=== PATIENT | female | born 1970 | race Caucasian/White ===

== ENCOUNTER → 2017-11-08 | Outpatient (CLI) | payer MEDICAID ==
--- NOTE | 2017-11-08 16:30 | WOMENS IMAGING REPORT ---
EXAM DESCRIPTION: BILAT SCREENING MAMMO W/CAD COMPLETED DATE/TIME: 11/08/2017 11:10 am REASON FOR STUDY: ROUTINE SCREENING;Z12.31 Z12.31 ENCNTR SCREEN MAMMOGRAM FOR MALIGNANT NEOPLASM OF LEYLA COMPARISON: 2014 TECHNIQUE: Standard craniocaudal and mediolateral oblique views of each breast recorded using digita l acquisition. LIMITATIONS: None. FINDINGS: No masses, calcifications or architectural distortion. No areas of suspicion. Read with the assistance of CAD. .[facility] - R2 Cenova Version 1.3 .[facility] Imaging - R2 Cenova Version 1.3 .[facility] Imaging - R2 Cenova Version 2.4 .[facility] [place] - R2 Cenova Version 2.4 .[facility] - R2 [employer] Nutrition Supervisor Version 9.2 IMPRESSION: NORMAL MAMMOGRAM. BIRADS 1. BREAST DENSITY: b. There are scattered areas of fibroglandular density. BIRAD: 1 NEGATIVE RECOMMENDATION: ROUTINE SCREENING COMMENT: The patient has been notified of the results by letter per SA requirements. Additional no tification policies are in place for contacting patient with suspicious or incomplete findings. Quality ID #[id number]: The [employer] recommends an annual screening mammogram for women aged 40 years or over. This facility utilizes a reminder system to ensure that all patients receive reminder letters, and/or direct phone calls for appointments. This includes reminders for routine scr eening mammograms, diagnostic mammograms, or other Breast Imaging Interventions when appropriate. Th is patient will be placed in the appropriate reminder system. The [employer] (A[employer]) has developed recommendations for screening MRI of the breast s in certain patient populations, to be used in conjunction with mammography. Breast MRI surveillanc e may be appropriate for women with more than 20% lifetime risk of developing breast cancer as deter mined by genetic testing, significant family history of the disease, or history of mantle radiation f or Hodgkins Disease. ACR Practice Guidelines 2008. TECHNICAL DOCUMENTATION: FINDING NUMBER: (1) ASSESSMENT: (1) JOB ID: [id number] [employer]- All Rights Reserved Reading location - IP/workstation name: [email or web address]
== END ==
LOC: WI 10:38
PROVIDERS: ATTEND Physician Assistant
DX: Z12.31 Encounter for screening mammogram for malignant neoplasm of breast (principal)
CPT/HCPCS: 77067

== ENCOUNTER 2018-06-27 10:08 | Emergency (ER) | payer MEDICAID ==
[2018-06-27 10:13] VITALS: BP 144/90
--- NOTE | 2018-06-27 10:33 | ER Document Report ---
ED Extremity Problem, Lower - General Chief Complaint: Knee Pain Stated Complaint: KNEE PAIN Time Seen by Provider: 06/27/18 10:18 Mode of Arrival: Ambulatory Information source: Patient Notes: 48-year-old female presents to ED for complaint of left knee pain times 10 days. She states that she fell in [employer] about 10 days ago in the medial aspect of her knee has been giving her problems since then. She states is in extreme pain. She does have a history of bilateral knee arthritis. Patient states she also had some pain in her back but that better she is just concerned about the left knee. Patient is alert and oriented respirations regular and unlabored speaking in full sentences. Patient is able to ambulate. She states it does hurt to ambulate. Patient states she plans to go to follow-up with her primary doctor Dr. James tomorrow. TRAVEL OUTSIDE OF THE [place] IN LAST 30 DAYS: No - HPI Patient complains to provider of: Injury, Pain Location: Knee - Left medial aspect Occurred: Other - 10 days Where: Other - [facility] Onset/Duration: Persistent Quality of pain: Achy, Sharp, Throbbing Severity: Severe Pain Level: 5 Context: Fell Recent injury: Possibly Associated symptoms: Painful ambulation Exacerbated by: Hanging down, Movement, Walking Relieved by: Nothing - Related Data Allergies/Adverse Reactions: Penicillins Allergy (Intermediate, Verified 02/07/14 19:20) Hives Past Medical History - General Information source: Patient - Social History Smoking Status: Current Every Day Smoker Cigarette use (# per day): Yes Smoking Education Provided: Yes - 4 minutes Frequency of alcohol use: None Drug Abuse: None Family History: None, Reviewed & Not Pertinent Patient has suicidal ideation: No Patient has homicidal ideation: No - Past Medical History Cardiac Medical History: Reports: None Pulmonary Medical History: Reports: None EENT Medical History: Reports: None Neurological Medical History: Reports: Hx Migraine, Other - Benign brain tumor removed Endocrine Medical History: Reports: None Renal/ Medical History: Reports: None Malignancy Medical History: Reports: None GI Medical History: Reports: None Musculoskeletal Medical History: Reports Hx Arthritis - RA bilat knees Skin Medical History: Reports None Psychiatric Medical History: Reports: Hx Depression Traumatic Medical History: Reports: None Infectious Medical History: Reports: None Past Surgical History: Reports: Hx Cholecystectomy, Hx Neurologic Surgery - tumor removed, Hx Tubal Ligation - Immunizations Hx Pneumococcal Vaccination: 04/17/11 Review of Systems - Review of Systems Constitutional: No symptoms reported EENT: No symptoms reported Cardiovascular: No symptoms reported Respiratory: No symptoms reported Gastrointestinal: No symptoms reported Genitourinary: No symptoms reported Female Genitourinary: No symptoms reported Musculoskeletal: Joint pain. denies: Joint swelling - Left knee Skin: No symptoms reported Hematologic/Lymphatic: No symptoms reported Neurological/Psychological: No symptoms reported -: Yes All other systems reviewed and negative Physical Exam - Vital signs Vitals: Temp Pulse Resp BP Pulse Ox 98.6 F 86 20 144/90 H 98 06/27/18 10:11 06/27/18 10:11 06/27/18 10:11 06/27/18 10:11 06/27/18 10:11 Interpretation: Normal - General General appearance: Appears well, Alert - HEENT Head: Normocephalic, Atraumatic Eyes: Normal Pupils: PERRL - Respiratory Respiratory status: No respiratory distress Chest status: Nontender Breath sounds: Normal Chest palpation: Normal - Cardiovascular Rhythm: Regular Heart sounds: Normal auscultation Murmur: No - Abdominal Inspection: Normal Distension: No distension Bowel sounds: Normal Tenderness: Nontender Organomegaly: No organomegaly - Back Back: Normal, Nontender - Extremities General upper extremity: Normal inspection, Nontender, Normal color, Normal ROM, Normal temperature General lower extremity: Normal inspection, Normal color, Normal temperature, Normal weight bearing. No: Janet's sign Knee: Tender, Pain with ROM, Patellar tendon intact, Tender joint line. No: Abrasion, Deformity, Dislocation, Drawer's test instability, Ecchymosis, Instability, Joint effusion, Laceration, Laxity with valgus stress, Laxity with varus stress, Popliteal fossa tender, Unable to bear weight - Medial - Neurological Neuro grossly intact: Yes Cognition: Normal Orientation: AAOx4 [place] Coma Scale Eye Opening: Spontaneous [place] Coma Scale Verbal: Oriented Paulo Coma Scale Motor: Obeys Commands Paulo Coma Scale Total: 15 Speech: Normal Motor strength normal: LUE, RUE, LLE, RLE Sensory: Normal - Psychological Associated symptoms: Normal affect, Normal mood - Skin Skin Temperature: Warm Skin Moisture: Dry Skin Color: Normal Course - Re-evaluation Re-evalutation: 06/27/18 11:13 I discussed with patient and written report of x-rays given to patient to follow-up with primary doctor and with orthopedics. Patient stated she would follow-up with her primary doctor who will have to make a referral to orthopedics. Patient opted on elevation ice ibuprofen and knee immobilizer. Patient was instructed on use of crutches. Patient was able to demonstrate use of crutches. Patient was discharged home. - Vital Signs Vital signs: Temp Pulse Resp BP Pulse Ox 98.6 F 86 20 144/90 H 98 06/27/18 10:11 06/27/18 10:11 06/27/18 10:11 06/27/18 10:11 06/27/18 10:11 - Diagnostic Test Radiology reviewed: Image reviewed, Reports reviewed Procedures - Immobilization Left Knee Time completed: 10:35 Pre-Proc Neuro Vasc Exam: Normal Immobilizer type: Crutches, Knee immobilizer Performed by: PCT Post-Proc Neuro Vasc Exam: Normal Alignment checked and good: Yes Discharge - Discharge Clinical Impression: Left knee pain Qualifiers: Chronicity: acute Qualified Code(s): M25.562 - Pain in left knee Fall Qualifiers: Encounter type: initial encounter Qualified Code(s): W19.XXXA - Unspecified fall, initial encounter Condition: Stable Disposition: HOME, SELF-CARE Additional Instructions: SUSPECTED INTERNAL KNEE INJURY: The examiner of your injured knee suspects an internal injury to the cartilage or internal ligaments. This must be further investigated by an orthopedic cast specialist. The knee should be protected, ice packed, and elevated while awaiting your follow-up exam by the orthopedist. If there is severe swelling, severe pain, or any new symptoms while awaiting your exam, you should call the orthopedist. (If he/she is unavailable, call us or return for re-examination.) KNEE IMMOBILIZING SPLINT: The knee immobilizing splint will protect the injury while healing begins. This type of splint does not allow the knee to bend at all. No running or sports will be possible. If the splint allows painfree walking, it's giving adequate protection. If there is still significant pain, crutches may be needed as well. Don't do anything that hurts. Adjusted the splint, if necessary. The stiffeners on the sides are attached with Velcro, so they can be easily moved to adjust for thigh and calf size. If you need help with these adjustments, come back. You will lose muscle strength in the thigh while using this splint. The doctor will advise you if it's safe to do isometric knee exercises while you use it. USE OF CRUTCHES: The doctor has recommended that you not bear weight at this time. You will need to use crutches. Adjust the crutches so the tops come to about two inches under the armpit while you are standing upright. Use your hands -- not your armpits -- to support your weight. To get into a chair, support yourself with one crutch on the injured side. Hold the chair with the other hand, then lower yourself while putting all your weight on the good leg. Going up stairs is `good leg up, step up, then bring up crutches and bad leg.' Down stairs is `bad leg and crutches down, then bring good leg down.' If you develop numbness or swelling in an arm or hand, you are using the crutches incorrectly. Return if you are having any problems with the crutches. ICE & ELEVATION: Apply ice packs frequently against the painful area. Many different schedules are recommended, such as "20 minutes on, 20 minutes off" or "one hour ice, two hours rest." If you need to work, you may need to go longer between ice treatments. You should plan to have the area ice packed AT LEAST one-fourth of the time. The ice should be applied over the wrap, tape, or splint, or over a layer of cloth -- not directly against the skin. Some ice bags have a built-in cloth and can be put directly on the skin. Your injured part should be elevated as much as possible over the next 48 hours. Try to keep the injury above the level of the heart. Avoid use of the injured area. Elevation and rest will decrease the swelling. USE OF [id number] IBUPROFEN: Ibuprofen (Advil, Nuprin, Medipren, Motrin IB) is a medication for fever and pain control. In addition, it has anti- inflammatory effects which may be beneficial, especially in the treatment of injuries. It's best to take ibuprofen with food. Persons with ulcer disease or allergy to aspirin should notify their physician of this before taking ibuprofen. Ibuprofen can be given every four to six hours, for a total of four doses daily. Age Pain or fever dose Antiinflammatory dose 6-8 yr 200 mg (1 tab) 200 mg (1 tab) 9-11 yr 200 mg (1 tab) 200-400 mg (1-2 tab) 11-14 yr 200-400 mg (1-2 tab) 400 mg (2 tab) 15-adult 400 mg (2 tab) 600 mg (3 tab) High Blood Pressure When your blood pressure was taken today it was elevated. Today's reading was 144/90 . Pre-hypertension/Hypertension: The patient has been informed that they may have pre-hypertension or Hypertension based on a blood pressure reading in the emergency department. I recommend that the patient call the primary care provider listed on their discharge instructions or a physician of their choice this wee to arrange follow up for further evaluation of possible pre- hypertension or Hypertension. Sometimes, stress or illness causes a temporary elevation of your blood pressure. We suggest that you get your blood pressure measured three more times during the next few days to see if this is more than a temporary abnormality. If your blood pressure is greater than 150/90 on each occasion, you must have treatment. Some simple things you can do to help are: If you have blood pressure medicine but aren't using it regularly, start taking it again. Get some aerobic exercise for at least 20 minutes on a daily basis. (See your doctor before beginning a new exercise program.) Eat a low-fat diet. Lose excess weight. Avoid salty foods and avoid adding salt to any of the foods you eat. Avoid diet pills, decongestants, "energizing" herbs, and other medicines that elevate blood pressure. If left untreated, hypertension greatly enhances your risk for developing heart disease and strokes. Please don't ignore this problem. FOLLOW-UP CARE: If you have been referred to a physician for follow-up care, call the physicians office for an appointment as you were instructed or within the next two days. If you experience worsening or a significant change in your symptoms, notify the physician immediately or return to the Emergency Department at any time for re-evaluation. Forms: Elevated Blood Pressure, Smoking Cessation Education, Return to Work Referrals: FADY MANZANARES PA [Primary Care Provider] - Follow up as needed CHRIST BATES MD [ACTIVE STAFF] - Follow up as needed
--- NOTE | 2018-06-27 10:58 | RADIOLOGY REPORT (SQ) ---
EXAM DESCRIPTION: KNEE LEFT 4 VIEW COMPLETED DATE/TIME: 06/27/2018 10:46 am REASON FOR STUDY: fell pain x 10 days COMPARISON: 02/22/2015. NUMBER OF VIEWS: Four views. TECHNIQUE: AP, lateral, and both oblique radiographic images acquired of the left knee. LIMITATIONS: None. FINDINGS: MINERALIZATION: Normal. BONES: No acute fracture or dislocation. No worrisome bone lesions. JOINT: No effusion. SOFT TISSUES: No soft tissue swelling. No radio-opaque foreign body. OTHER: No other significant finding. IMPRESSION: NEGATIVE STUDY OF THE LEFT KNEE. NO RADIOGRAPHIC EVIDENCE OF ACUTE INJURY. TECHNICAL DOCUMENTATION: JOB ID: [id number] [employer]- All Rights Reserved Reading location - IP/workstation name: [email or web address]
== END 2018-06-27 11:16 | disposition home or self-care (01) ==
LOC: ER 10:08
DX: M25.562 Pain in left knee (principal); F17.210 Nicotine dependence, cigarettes, uncomplicated; W19.XXXA Unspecified fall, initial encounter; Y92.512 Supermarket, store or market as the place of occurrence of the external cause; Z88.0 Allergy status to penicillin; Z90.49 Acquired absence of other specified parts of digestive tract
CPT/HCPCS: 99406; 99283; 73564; L1830

== ENCOUNTER 2018-07-10 14:32 | Emergency (ER) | payer MEDICAID ==
--- NOTE | 2018-07-10 16:06 | ER Document Report ---
ED Respiratory Problem - General Mode of Arrival: Ambulatory Information source: Patient TRAVEL OUTSIDE OF THE [place] IN LAST 30 DAYS: No - HPI Patient complains to provider of: Cough, Other Onset: Other Duration: Continuous - 2 weeks Initiating Event: URI Quality of pain: Achy, Other Severity: Severe - Sore throat Context: Smoker Cough: Productive Sputum amount: Moderate Sputum color: Yellow Sputum consistency: Thick Associated symptoms: Congestion, Cough, PND, Runny nose, Short of breath, Sore Throat. denies: Fever Similar symptoms previously: Yes Recently seen / treated by doctor: Yes - General Chief Complaint: Cough Stated Complaint: COUGH,CONGESTION,SORE THROAT Time Seen by Provider: 07/10/18 15:50 Notes: 48-year-old female presents to ED for cough cold congestion sore throat for 2 weeks. She states it is been going on since she was seen last time for her knee pain. She states she has been trying to get into the doctor for that but she has not been able to get in follow-up appointment. She states she is also not been in to be seen about her high blood pressure. Patient is alert oriented respirations regular and unlabored speaking in full sentences walk with a even steady gait. Her blood pressure is 160/105 in the [place] area. The nurse will recheck it manually. (WINNIE LAUGHLIN) - Related Data Allergies/Adverse Reactions: Penicillins Allergy (Intermediate, Verified 07/10/18 14:36) Hives Past Medical History - General Information source: Patient - Social History Smoking Status: Current Every Day Smoker Cigarette use (# per day): Yes - 5 cigarettes a day Chew tobacco use (# tins/day): No Smoking Education Provided: Yes - 4 minutes Frequency of alcohol use: None Drug Abuse: None Family History: None, Reviewed & Not Pertinent Patient has suicidal ideation: No Patient has homicidal ideation: No - Past Medical History Cardiac Medical History: Reports: Hx Hypertension Pulmonary Medical History: Reports: None EENT Medical History: Reports: None Neurological Medical History: Reports: Hx Migraine Endocrine Medical History: Reports: None Renal/ Medical History: Reports: None Malignancy Medical History: Reports: None GI Medical History: Reports: None Musculoskeletal Medical History: Reports Hx Arthritis - RA bilat knees Skin Medical History: Reports None Psychiatric Medical History: Reports: Hx Depression Traumatic Medical History: Reports: None Infectious Medical History: Reports: None Past Surgical History: Reports: Hx Cholecystectomy, Hx Neurologic Surgery - tumor removed, Hx Tubal Ligation - Immunizations Immunizations up to date: Yes History of Influenza Vaccine for 04/2017 - 09/2017 Season: No Hx Pneumococcal Vaccination: 04/17/11 Review of Systems - Review of Systems Constitutional: Chills, Recent illness EENT: Nose congestion, Nose discharge, Sinus pressure, Sinus discharge, Throat pain Cardiovascular: No symptoms reported Respiratory: Cough, Short of breath, Sputum Gastrointestinal: No symptoms reported Genitourinary: No symptoms reported Female Genitourinary: No symptoms reported Musculoskeletal: No symptoms reported Skin: No symptoms reported Hematologic/Lymphatic: No symptoms reported Neurological/Psychological: No symptoms reported -: Yes All other systems reviewed and negative Physical Exam - Vital signs Interpretation: Normal - General General appearance: Appears well, Alert - HEENT Head: Normocephalic, Atraumatic Eyes: Normal Pupils: PERRL Ears: Normal External canal: Normal Tympanic membrane: Normal Sinus: Normal Nasal: Purulent discharge, Swelling Mouth/Lips: Normal Mucous membranes: Normal Pharynx: Post nasal drainage Neck: Normal - Respiratory Respiratory status: No respiratory distress Chest status: Nontender Breath sounds: Normal, Nonproductive cough Chest palpation: Normal - Cardiovascular Rhythm: Regular Heart sounds: Normal auscultation Murmur: No - Abdominal Inspection: Normal Distension: No distension Bowel sounds: Normal Tenderness: Nontender Organomegaly: No organomegaly - Back Back: Normal, Nontender - Extremities General upper extremity: Normal inspection, Nontender, Normal color, Normal ROM, Normal temperature General lower extremity: Normal inspection, Nontender, Normal color, Normal ROM, Normal temperature, Normal weight bearing. No: Janet's sign - Neurological Neuro grossly intact: Yes Cognition: Normal Orientation: AAOx4 [place] Coma Scale Eye Opening: Spontaneous [place] Coma Scale Verbal: Oriented Paulo Coma Scale Motor: Obeys Commands Paulo Coma Scale Total: 15 Speech: Normal Motor strength normal: LUE, RUE, LLE, RLE Sensory: Normal - Psychological Associated symptoms: Normal affect, Normal mood - Skin Skin Temperature: Warm Skin Moisture: Dry Skin Color: Normal - Vital signs Vitals: Temp Pulse Resp BP Pulse Ox 99.7 F 68 16 160/105 H 98 07/10/18 15:09 07/10/18 15:09 07/10/18 15:09 07/10/18 15:09 07/10/18 15:09 Course - Diagnostic Test Radiology reviewed: Image reviewed, Reports reviewed - Re-evaluation Re-evalutation: 07/10/18 21:35 X-ray results and strep results were discussed with patient and written reports given to patient. After performing a Medical Screening Examination, I estimate there is LOW risk for ACUTE CORONARY SYNDROME, RESPIRATORY FAILURE, SEPSIS OR MENINGITIS, thus I consider the discharge disposition reasonable. I have reevaluated this patient multiple times and no significant life threatening changes are noted. The patient and I have discussed the diagnosis and risks, and we agree with discharging home with close follow-up. We also discussed returning to the Emergency Department immediately if new or worsening symptoms occur. We have discussed the symptoms which are most concerning (e.g., changing or worsening pain, trouble swallowing or breathing, neck stiffness, fever) that necessitate immediate return. (WINNIE LAUGHLIN) 07/11/18 20:29 I was personally available for consultation during this patient's worse. I did not personally evaluate the patient. (ANDRE RUSSELL) - Vital Signs Vital signs: Temp Pulse Resp BP Pulse Ox 99.7 F 71 18 156/93 H 100 07/10/18 15:09 07/10/18 16:58 07/10/18 16:58 07/10/18 16:58 07/10/18 16:58 Discharge - Discharge Clinical Impression: Sore throat (viral) URI (upper respiratory infection) Qualifiers: URI type: unspecified URI Qualified Code(s): J06.9 - Acute upper respiratory infection, unspecified Condition: Stable Disposition: HOME, SELF-CARE Additional Instructions: SORE THROAT: Sore throats may be caused by viruses, bacteria, or fungi. Most are due to a virus, and must get better on their own. Bacterial sore throats, particularly those due to "strep," need treatment with antibiotics. If an antibiotic is prescribed, be sure to take the medication for a full 10 days. Failure to take the antibiotic can result in complications such as rheumatic fever. Sometimes, an injection of antibiotics is given instead of pills or liquid. This single "shot" is equal in effectiveness to the oral medication. To relieve symptoms, take acetaminophen for pain. Sip clear liquids frequently, or eat popsicles or ice chips. Anesthetic sprays or lozenges may help. Make sure the air in the room is not too dry. Avoid using decongestants or antihistamines. Call the doctor if there is no improvement in two days, or if you have difficulty breathing, increasing throat pain, high fever, rash, or frequent vomiting. UPPER RESPIRATORY ILLNESS: You have a viral infection of the respiratory passages -- a "cold." This common infection causes nasal congestion, drainage, and often sore throat and cough. It is highly contagious. The disease usually lasts about 10 to 14 days. There is no "cure" for the viral infection -- it must run its course. If there is a complication, such as bacterial infection in the nose, sinuses, middle ear, or bronchial tubes, antibiotics may be required. The antibiotics w on't affect the virus. Drink plenty of fluids. A humidifier may help. An expectorant medication or decongestant may make you more comfortable. Use acetaminophen or ibuprofen for fever or aches. See the doctor if fever persists over two days, if there is any significant worsening of your symptoms, or if you simply fail to improve as expected. USE OF ACETAMINOPHEN (Tylenol): Acetaminophen may be taken for pain relief or fever control. It's much safer than aspirin, offering a wider range of "safe" dosages. It is safe during . Some brand names are Tylenol, Panadol, Datril, Anacin 3, Tempra, and Liquiprin. Acetaminophen can be repeated every four hours. The following are maximum recommended dosages: >89 pounds or adults 650 mg to 900 mg Acetaminophen can be repeated every four hours. Maximum dose not to exceed 4000 mg a day. SMOKING: If you smoke, you should stop smoking. The tar and chemicals in cigarette smoke are harmful. Smoking has been shown to cause: emphysema chronic bronchitis lung cancer mouth and throat cancer stomach and pancreas cancer premature aging defects In addition, smoking increases ear and lung infections in children of smokers. Use salt and soda solution gargles to help remove the postnasal drip to help you with your cough. You do not have strep throat your chest x-ray is negative for any infection. Please follow-up with your primary doctor. Please stop smoking. FOLLOW-UP CARE: If you have been referred to a physician for follow-up care, call the physicians office for an appointment as you were instructed or within the next two days. If you experience worsening or a significant change in your symptoms, notify the physician immediately or return to the Emergency Department at any time for re-evaluation. Forms: Elevated Blood Pressure, Smoking Cessation Education Referrals: FADY MANZANARES PA [PHYSICIAN POWER NUT RUNNER OPERATOR] - Follow up as needed
--- NOTE | 2018-07-10 16:41 | RADIOLOGY REPORT (SQ) ---
EXAM DESCRIPTION: CHEST 2 VIEWS COMPLETED DATE/TIME: 07/10/2018 4:28 pm REASON FOR STUDY: Cough congestion sore throat COMPARISON: 2012 TECHNIQUE: Frontal and lateral radiographic views of the chest acquired. NUMBER OF VIEWS: Two view. LIMITATIONS: None. FINDINGS: LUNGS AND PLEURA: No opacities, masses or pneumothorax. No pleural effusion. MEDIASTINUM AND HILAR STRUCTURES: No masses or contour abnormalities. HEART AND VASCULAR STRUCTURES: Heart normal size. No evidence for failure. BONES: No acute findings. HARDWARE: None in the chest. OTHER: No other significant finding. IMPRESSION: NO SIGNIFICANT RADIOGRAPHIC FINDING IN THE CHEST. TECHNICAL DOCUMENTATION: JOB ID: [id number] [employer]- All Rights Reserved Reading location - IP/workstation name: [email or web address]
[2018-07-10 16:58] VITALS: BP 156/93
== END 2018-07-10 17:01 | disposition home or self-care (01) ==
LOC: ER 14:32
DX: J06.9 Acute upper respiratory infection, unspecified (principal); J02.9 Acute pharyngitis, unspecified; R05 Cough; R09.81 Nasal congestion; R09.82 Postnasal drip; R09.89 Other specified symptoms and signs involving the circulatory and respiratory systems; R06.02 Shortness of breath; F17.210 Nicotine dependence, cigarettes, uncomplicated; I10 Essential (primary) hypertension
CPT/HCPCS: 71046; 87070; 87880; 99283; 99406

== ENCOUNTER 2018-09-25 19:32 | Emergency (ER) | payer MEDICAID ==
[2018-09-25] MEDS ORDERED: KETOROLAC TROMETHAMINE INJ/PF 30 MG/1 ML SDV IV ONE (20:12)
[2018-09-25] MEDS ORDERED: PROCHLORPERAZINE EDISYLATE INJ 10 MG/2 ML VIAL IV ONE (20:12)
[2018-09-25] MEDS ORDERED: DIPHENHYDRAMINE HCL 50 MG/ML VIAL IV ONE (20:12)
--- NOTE | 2018-09-25 20:13 | ER Document Report ---
ED Medical Screen (RME) - General Chief Complaint: Headache Stated Complaint: HEAD PAIN Time Seen by Provider: 09/25/18 20:08 Primary Care Provider: ASHLEY PARKS MD [Primary Care Provider] - Follow up as needed Notes: 48-year-old female patient with 3-day history of headache all over. She took Motrin once yesterday. She states Motrin usually takes care of her headaches like this. Brief exam shows scalp tenderness all over, and extreme tenderness to the posterior cervical muscles and the nuchal ridge. This appears to be a muscle contraction type headache. TRAVEL OUTSIDE OF THE [place] IN LAST 30 DAYS: No - Related Data Allergies/Adverse Reactions: Penicillins Allergy (Intermediate, Verified 07/10/18 14:36) Hives Past Medical History - Social History Family history: Reviewed & Not Pertinent - Past Medical History Cardiac Medical History: Reports: Hx Hypertension Neurological Medical History: Reports: Hx Migraine Renal/ Medical History: Denies: Hx Peritoneal Dialysis Musculoskeltal Medical History: Reports Hx Arthritis - RA bilat knees Psychiatric Medical History: Reports: Hx Depression Past Surgical History: Reports: Hx Cholecystectomy, Hx Neurologic Surgery - tumor removed, Hx Tubal Ligation. Denies: Hx Hysterectomy - Immunizations Immunizations up to date: Yes History of Influenza Vaccine for 04/2017 - 09/2017 Season: No Physical Exam - Vital signs Vitals: Temp Pulse Resp BP Pulse Ox 98.2 F 86 24 H 145/89 H 99 09/25/18 19:41 09/25/18 19:41 09/25/18 19:41 09/25/18 19:41 09/25/18 19:41 Course - Vital Signs Vital signs: Temp Pulse Resp BP Pulse Ox 98.2 F 86 24 H 145/89 H 99 09/25/18 19:41 09/25/18 19:41 09/25/18 19:41 09/25/18 19:41 09/25/18 19:41 Doctor's Discharge - Discharge Referrals: ASHLEY PARKS MD [Primary Care Provider] - Follow up as needed
[2018-09-25] MEDS ORDERED: TETRACAINE HCL 0.5% OPH SOLN 4 ML OU ONE (20:47)
--- NOTE | 2018-09-25 22:04 | RADIOLOGY REPORT (SQ) ---
EXAM DESCRIPTION: CT HEAD WITHOUT IV CONTRAST COMPLETED DATE/TME: 09/25/2018 20:47 CLINICAL HISTORY: 48 years, Female, headache, h/o craniotomy COMPARISON: 09/29/2012 CT brain TECHNIQUE: 196 Images stored on PACS. All CT scanners at this facility use dose modulation, iterative reconstruction, and/or weight based dosing when appropriate to reduce radiation dose to as low as reasonably achievable (ALARA). [facility]: Dose Right [facility]: CareDose [facility]: Dose Right [facility]: Teradose 4D [facility]: [employer] LIMITATIONS: None. FINDINGS: The globes are intact. The paranasal sinuses and mastoid air cells are unremarkable. 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 Stable areas of relative hyperdensity in the underlying dura and subdural regions. No CT evidence for acute intracranial hemorrhage. CT is limited for evaluation of acute infarct. No CT evidence for large or territorial acute infarct. No mass or midline shift. IMPRESSION: Stable postsurgical changes as above. Negative for acute intracranial abnormality TECHNICAL DOCUMENTATION: Quality ID # [id number]: Final reports with documentation of one or more dose reduction techniques (e.g., Automated exposure control, adjustment of the mA and/or kV according to patient size, use of iterative reconstruction technique) copyright 2011 [employer]- All Rights Reserved
--- NOTE | 2018-09-25 23:33 | RADIOLOGY REPORT (SQ) ---
EXAM DESCRIPTION: XR CHEST 2 VIEWS COMPLETED DATE/TME: 09/25/2018 22:51 CLINICAL HISTORY: 48 years, Female, cough COMPARISON: 07/10/2018 chest NUMBER OF VIEWS: 2 TECHNIQUE: 2 view chest LIMITATIONS: None. FINDINGS: Heart size normal. Lungs clear. No pneumothorax IMPRESSION: Negative chest copyright 2010 [employer]- All Rights Reserved
[2018-09-26] MEDS ORDERED: ALBUTEROL SULFATE HFA (90 MCG/PUFF) 8 GM MDI (1 MDI/ER DISP) IH PRN (00:42)
--- NOTE | 2018-09-26 00:46 | ER Document Report ---
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 Patient does smoke 1 pack/cigarettes a day. She does report a recent cough. And she reports a headache with the cough. TRAVEL OUTSIDE OF THE [place] IN LAST 30 DAYS: No - HPI Onset: Last week Onset/Duration: Gradual Quality of pain: Dull Severity: Moderate Pain Level: 3 Associated symptoms: denies: Chest pain, Fever, Shortness of breath Exacerbated by: Denies Relieved by: Denies Similar symptoms previously: Yes Recently seen / treated by doctor: No - Related Data Allergies/Adverse Reactions: Penicillins Allergy (Intermediate, Verified 07/10/18 14:36) Hives Past Medical History - General Information source: Patient - Social History Smoking Status: Current Every Day Smoker Cigarette use (# per day): Yes - 1 pack/day Chew tobacco use (# tins/day): No Frequency of alcohol use: None Drug Abuse: None Lives with: Family Family History: None, Reviewed & Not Pertinent Patient has suicidal ideation: No Patient has homicidal ideation: No - Past Medical History Cardiac Medical History: Reports: Hx Hypertension Pulmonary Medical History: Reports: None Neurological Medical History: Reports: Hx Migraine Endocrine Medical History: Reports: None Renal/ Medical History: Denies: Hx Peritoneal Dialysis Malignancy Medical History: Reports: Other - 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 Denies: Hx Hysterectomy - Immunizations Immunizations up to date: Yes Hx Pneumococcal Vaccination: 04/17/11 Review of Systems - Review of Systems Constitutional: denies: Chills, Fever EENT: No symptoms reported Cardiovascular: No symptoms reported Respiratory: See HPI Gastrointestinal: No symptoms reported Genitourinary: No symptoms reported Female Genitourinary: No symptoms reported Musculoskeletal: No symptoms reported Skin: No symptoms reported Hematologic/Lymphatic: No symptoms reported Neurological/Psychological: See HPI Physical Exam - Vital signs Vitals: Temp Pulse Resp BP Pulse Ox 98.2 F 86 24 H 145/89 H 99 09/25/18 19:41 09/25/18 19:41 09/25/18 19:41 09/25/18 19:41 09/25/18 19:41 Notes: Physical exam: GENERAL: She is alert and oriented x3, no acute distress. HEAD: Atraumatic, normocephalic. EYES: Patient's right pupil is round and reactive to light. Patient does have an irregular shaped left pupil. She does have a history of 2 surgeries on the right eye with lens replacement. Her conjunctiva is mildly injected left. Jordon-Pen: Pressure on the right is 11, pressure on the left is 14 (both tested multiple times with 95% confidence intervals). ENT: TMs normal, nares patent, oropharynx clear without exudates. Moist mucous membranes. NECK: Normal range of motion, supple without obvious mass or JVD. LUNGS: Breath sounds clear to auscultation bilaterally and equal. No wheezes rales or rhonchi. HEART: Regular rate and rhythm without murmurs, rubs or gallops. ABDOMEN: Soft, normoactive bowel sounds. No tenderness to palpation. No guarding, no rebound. No masses appreciated. EXTREMITIES: Normal range of motion, no pitting or edema. No clubbing or cyanosis. NEUROLOGICAL: Cranial nerves II through XII grossly intact. Patient's neck is supple. Normal speech, moving all extremities. There is 5/5, sensory is grossly intact. PSYCH: Normal mood, normal affect. SKIN: Warm, Dry, normal turgor, no rashes or lesions noted. Course - Re-evaluation Re-evalutation: 09/26/18 02:52 Patient was treated with IV pain medicines with good response. We did do a CT of the head given her history of a left skull mass. CT was clear. He had chest pain patient's chest x-ray was clear. - Vital Signs Vital signs: Temp Pulse Resp BP Pulse Ox 97.9 F 78 18 136/91 H 100 09/26/18 00:13 09/26/18 00:13 09/26/18 00:13 09/26/18 00:13 09/26/18 00:13 - Diagnostic Test Radiology reviewed: Image reviewed, Reports reviewed - CT of the head shows no bleed Discharge - Discharge Clinical Impression: Migraine headache, URI Condition: Stable Disposition: HOME, SELF-CARE Additional Instructions: As we discussed, the head CT look good. The pressure in both eyes was good. I do want you to follow-up with the solar sales advisor. Your chest x-ray was clear: You do have an upper respiratory infection. Take the inhaler: 2 puffs every 6 hours for wheezing or cough. Take the Fioricet for headache. Return to the emergency room for worsening pain or any concerns or getting worse. Follow-up with your primary care doctor in 2-3 days. Prescriptions: Butalb/Acetaminophen/Caffeine [Fioricet (50-325-40 mg) Tablet] 1 tab PO Q4HP PRN #30 tab PRN Reason: Referrals: ASHLEY PARKS MD [Primary Care Provider] - Follow up in 3-5 days
[2018-09-26 00:51] VITALS: BP 136/91
== END 2018-09-26 00:54 | disposition home or self-care (01) ==
LOC: ER 19:32
DX: G43.909 Migraine, unspecified, not intractable, without status migrainosus (principal); J06.9 Acute upper respiratory infection, unspecified; R05 Cough; F17.210 Nicotine dependence, cigarettes, uncomplicated; I10 Essential (primary) hypertension; Z88.0 Allergy status to penicillin; Z96.1 Presence of intraocular lens
CPT/HCPCS: 99284; 96374; 96375; 71046; 70450; J1200; J1885; J0780; J3490 ×2

== ENCOUNTER 2018-10-22 18:40 | Emergency (ER) | payer MEDICAID ==
[2018-10-22] MEDS ORDERED: HYDROMORPHONE HCL INJ/PF 2 MG/ML AMPULE SUBCUT ONE (20:06)
[2018-10-22] MEDS ORDERED: ONDANSETRON 4 MG TAB.RAPDIS PO ONE (20:07)
[2018-10-22] MEDS ORDERED: LIDOCAINE 1%/EPINEPHRINE INJ 20 ML VIAL INJ ONE (20:08)
--- NOTE | 2018-10-22 20:12 | ER Document Report ---
ED General - General Chief Complaint: Abscess Stated Complaint: GROIN PAIN Time Seen by Provider: 10/22/18 20:06 Primary Care Provider: ASHLYE PARKS MD [Primary Care Provider] - Follow up as needed Mode of Arrival: Ambulatory Information source: Patient TRAVEL OUTSIDE OF THE [place] IN LAST 30 DAYS: No - HPI Patient complains to provider of: Left groin abscess Onset: Last week Onset/Duration: Gradual, Persistent Quality of pain: Sharp, Stabbing Severity: Severe Pain Level: 5 Associated symptoms: denies: Chills, Fever Exacerbated by: Movement, Other - TOUCH Relieved by: Denies Similar symptoms previously: No Recently seen / treated by doctor: No Notes: 48-year-old morbidly obese female with left groin abscess since last week. No fevers or chills. History of abscesses in the past. - Related Data Allergies/Adverse Reactions: Penicillins Allergy (Intermediate, Verified 10/22/18 18:48) Hives Past Medical History - General Information source: Patient - Social History Smoking Status: Current Every Day Smoker Family History: None, Reviewed & Not Pertinent - Past Medical History Cardiac Medical History: Reports: Hx Hypertension Neurological Medical History: Reports: Hx Migraine Renal/ Medical History: Denies: Hx Peritoneal Dialysis Musculoskeletal Medical History: Reports Hx Arthritis - RA bilat knees Psychiatric Medical History: Reports: Hx Depression Past Surgical History: Reports: Hx Cholecystectomy, Hx Neurologic Surgery - tumor removed, Hx Tubal Ligation. Denies: Hx Hysterectomy - Immunizations Immunizations up to date: Yes Hx Pneumococcal Vaccination: 04/17/11 Review of Systems - Review of Systems Notes: Constitutional: No fevers. No chills. EENT: No eye redness. No eye pain. No ear pain. No sore throat. Cardiovascular: No chest pain. No palpitations. Respiratory: No cough. No shortness of breath. No respiratory distress. Gastrointestinal: No abdominal pain. No nausea, vomiting, or diarrhea. Genitourinary: Atraumatic. No lesions. No pain. No discharge. Positive for genital abscess Musculoskeletal: Atraumatic. No swelling. No deformities. Skin: No rash or lesions. Lymphatic: No swollen lymph nodes. Neurologic: No headache. No syncope. Psychiatric: No suicidal or homicidal ideation. Physical Exam - Vital signs Vitals: Temp Pulse Resp BP Pulse Ox 98.8 F 71 16 172/87 H 97 04/16/19 19:44 10/22/18 19:44 10/22/18 19:44 10/22/18 19:44 10/22/18 19:44 - Notes Notes: General: Well-developed, well-nourished. In no acute distress. Non-toxic appearing. Cardiac: Well-perfused. Regular rate and rhythm. No murmurs, rubs, or gallops. Pulmonary: No respiratory distress. No cyanosis. Bilateral lung fiels are clear to auscultation. Abdominal: Non-distended. Non-rigid. Bowels sounds are present in all four quadrants. No guarding or rebound. HEENT: Head is atraumatic. Conjunctivae not reddened. No tearing. PERRL. EOMI. Orbits atraumatic. No periorbital swelling or erythema. Oropharynx is without erythema, swelling, or exudates. Neck: Supple. No adenopathy. No meningismus. Dermatologic: Warm with good turgor. No rash. Atraumatic. Chest: Atraumatic. No chest wall tenderness to palpation. Musculoskeletal: Moves all extremities well. No range of motion deficits. no muscular or joint tenderness. No paraspinal muscle tenderness. no midline spinal tenderness or step-off. Genitourinary: CHAPERONED BY EVA. Tender left INNER THIGH fluctuant abscess. Neurologic: No gross neurologic deficits. Psychiatric: Normal mood. Course - Vital Signs Vital signs: Temp Pulse Resp BP Pulse Ox 98.8 F 71 16 172/87 H 97 10/22/18 19:44 10/22/18 19:44 10/22/18 19:44 10/22/18 19:44 10/22/18 19:44 Procedures - Incision and Drainage LEFT THIGH ABSCESS Time completed: 21:21 Type: Simple Anesthetic type: 1% Lidocaine w/epi mL's of anesthetic: 6 Blade size: 11 I&D procedure: Betadine prep applied Incision Method: Incision made by scalpel Amount/type of drainage: 10 ML IFEOMA FOUL SMELLING PURULENT DRAINAGE Notes: 10/22/18 21:22 Patient tolerated procedure well Discharge - Discharge Clinical Impression: Thigh abscess, Elevated blood pressure reading Condition: Good Disposition: HOME, SELF-CARE Instructions: Abscess ([facility]), Oral Narcotic Medication ([facility]), Post Incision and Drainage Additional Instructions: Follow-up in the ER 2 days for recheck. Prescriptions: Doxycycline Hyclate 100 mg PO BID 10 Days #20 capsule Forms: Elevated Blood Pressure Referrals: ASHLEY PARKS MD [Primary Care Provider] - Follow up as needed
[2018-10-22] MEDS ORDERED: DOXYCYCLINE HYCLATE 100 MG TABLET PO ONE (21:22)
[2018-10-22] MEDS ORDERED: HYDROCODONE/ACETAMINOPHEN 5-325 MG (6 TAB/ER DISP) PO PRN (21:23)
[2018-10-22 21:40] VITALS: BP 128/92
== END 2018-10-22 21:40 | disposition home or self-care (01) ==
LOC: ER 18:40
DX: L02.416 Cutaneous abscess of left lower limb (principal); F17.200 Nicotine dependence, unspecified, uncomplicated; I10 Essential (primary) hypertension; Z88.0 Allergy status to penicillin
CPT/HCPCS: 99283; 96372; 10060; J3490 ×2; S0119; J1170

== ENCOUNTER 2019-04-15 20:20 | Emergency (ER) | payer MEDICAID ==
[2019-04-15] MEDS ORDERED: ASPIRIN 81 MG TABLET, CHEWABLE PO ONE (22:22)
--- NOTE | 2019-04-15 22:25 | ER Document Report ---
ED Medical Screen (RME) - General Chief Complaint: High Blood Pressure Stated Complaint: BLOOD PRESSURE HIGH Time Seen by Provider: 04/15/19 22:16 Primary Care Provider: ASHLEY PARKS MD [Primary Care Provider] - Follow up as needed Notes: Patient is a 49-year-old female presents emergency department with a chief complaint of chest pain and headache. Her symptoms started this evening shortly prior to arrival. She took 800 mg ibuprofen has had little relief. She states that she has also been nauseous and sick to her stomach. Patient has a past medical history of hyperlipidemia and hypertension. She is also current 1 pack a day smoker. Exam: S1, S2. Lung sounds clear to auscultation. I have greeted and performed a rapid initial assessment of this patient. A comprehensive ED assessment and evaluation of the patient, analysis of test results and completion of medical decision making process will be conducted by an additional ED providers. TRAVEL OUTSIDE OF THE [place] IN LAST 30 DAYS: No - Related Data Allergies/Adverse Reactions: Penicillins Allergy (Intermediate, Verified 04/15/19 21:27) Hives Past Medical History - Social History Family history: Reviewed & Not Pertinent - Past Medical History Cardiac Medical History: Reports: Hx Hypertension Neurological Medical History: Reports: Hx Migraine Renal/ Medical History: Denies: Hx Peritoneal Dialysis Musculoskeltal Medical History: Reports Hx Arthritis - RA bilat knees Psychiatric Medical History: Reports: Hx Depression Past Surgical History: Reports: Hx Cholecystectomy, Hx Neurologic Surgery - tumor removed, Hx Tubal Ligation. Denies: Hx Hysterectomy - Immunizations Immunizations up to date: Yes Physical Exam - Vital signs Vitals: Temp Pulse Resp BP Pulse Ox 98.7 F 70 21 H 150/83 H 100 04/15/19 21:24 04/15/19 21:24 04/15/19 21:24 04/15/19 21:24 04/15/19 21:24 Course - Vital Signs Vital signs: Temp Pulse Resp BP Pulse Ox 98.7 F 70 21 H 150/83 H 100 04/15/19 21:24 04/15/19 21:24 04/15/19 21:24 04/15/19 21:24 04/15/19 21:24 Doctor's Discharge - Discharge Referrals: ASHLEY PARKS MD [Primary Care Provider] - Follow up as needed
[2019-04-15 23:33] LABS: ABSOLUTE BASOPHILS # (AUTO) 0.1 10^3/uL (0.0-0.2); ABSOLUTE EOSINOPHILS # (AUTO) 0.3 10^3/uL (0.0-0.6); ABSOLUTE LYMPHOCYTES (AUTO) 4.6 10^3/uL (0.5-4.7); ABSOLUTE MONOCYTES (AUTO) 0.8 10^3/uL (0.1-1.4); ABSOLUTE NEUT (AUTO) 8.1 10^3/uL (1.7-8.2); BASOPHILS % (AUTO) 0.8 % (0-2); EOSINOPHILS % (AUTO) 2.1 % (0-6); HEMATOCRIT 46.8 % (36.0-47.0); HEMOGLOBIN 15.6 g/dL (12.0-15.5); LYMPHOCYTES % (AUTO) 32.8 % (13-45); MEAN CORPUSCULAR HEMOGLOBIN 30.2 pg (27.0-33.4); MEAN CORPUSCULAR HGB CONC 33.2 g/dL (32.0-36.0); MEAN CORPUSCULAR VOLUME 91 fl (80-97); PLATELET COUNT 264 10^3/uL (150-450); RED BLOOD COUNT 5.15 10^6/uL (3.72-5.28); RED CELL DISTRIBUTION WIDTH 13.4 % (11.5-14.0); SEGMENTED NEUTROPHILS % (AUTO) 58.3 % (42-78); TOTAL CELLS COUNTED % (AUTO) 100 %; WHITE BLOOD COUNT 13.9 10^3/uL (4.0-10.5)
[2019-04-15 23:39] LABS: ALBUMIN 4.5 g/dL (3.5-5.0); ALKALINE PHOSPHATASE 104 U/L (38-126); ANION GAP 12 (5-19); ASPARTATE AMINO TRANSFERASE 31 U/L (14-36); BILIRUBIN,DIRECT 0.5 mg/dL (0.0-0.4); BILIRUBIN,TOTAL 0.7 mg/dL (0.2-1.3); BLOOD UREA NITROGEN 6 mg/dL (7-20); CALCIUM 9.7 mg/dL (8.4-10.2); CARBON DIOXIDE 21 mmol/L (22-30); CHLORIDE 106 mmol/L (98-107); CREATINE KINASE 66 U/L (30-135); GLUCOSE 93 mg/dL (75-110); POTASSIUM 4.2 mmol/L (3.6-5.0); TOTAL PROTEIN 7.8 g/dL (6.3-8.2)
--- NOTE | 2019-04-15 23:39 | RADIOLOGY REPORT (SQ) ---
EXAM DESCRIPTION: XR CHEST 1 VIEW COMPLETED DATE/TME: 04/15/2019 22:23 CLINICAL HISTORY: 49 years, Female, chest pain COMPARISON: Multiple priors, most recent from 09/25/2018 NUMBER OF VIEWS: One TECHNIQUE: Single frontal view of the chest was obtained LIMITATIONS: None. FINDINGS: Cardiac and mediastinal contours are stable in appearance. Lungs are clear. No pleural effusion or pneumothorax. IMPRESSION: No acute disease. copyright 2010 [employer]- All Rights Reserved
[2019-04-15 23:51] LABS: CREATINE KINASE MB 0.27 ng/mL (<4.55)
[2019-04-15 23:52] LABS: TROPONIN I < 0.012 ng/mL
[2019-04-16] MEDS ORDERED: ASPIRIN 81 MG TABLET, CHEWABLE ONE (00:49)
--- NOTE | 2019-04-16 01:16 | ER Document Report ---
ED General - General Chief Complaint: High Blood Pressure Stated Complaint: BLOOD PRESSURE HIGH Time Seen by Provider: 04/15/19 22:16 Primary Care Provider: ASHLEY PARKS MD [ACTIVE PROVISIONAL STAFF] - Follow up as needed Notes: 49-year-old female presents emergency department complaining of elevated blood pressure. Patient states that she was visiting with a friend when her face felt flushed and warm and she always does that when her blood pressure is high. Her friend is a nurse to the checked her blood pressure and it was approximately 180/90. Her friend became very worried and stated that that was high enough to cause a stroke and she should go to the emergency department immediately. Patient states that the time she was having some nausea and a chest pain that can all be described as a "hurting" in her chest. Cannot classify it as sharp or stabbing or dull or aching or throbbing or burning. Only states that it hurts. Chest pain is gone now, states that it was quite mild previously. Admits that she takes 1 pill for high blood pressure which is furosemide. No history of stroke, no history of heart attack. TRAVEL OUTSIDE OF THE [place] IN LAST 30 DAYS: No - Related Data Allergies/Adverse Reactions: Penicillins Allergy (Intermediate, Verified 04/15/19 21:27) Hives Past Medical History - General Information source: Patient - Social History Smoking Status: Current Every Day Smoker Frequency of alcohol use: Rare Drug Abuse: None Family History: Reviewed & Not Pertinent - Does not know anything about her father., Malignancy - Mother from colon cancer Patient has suicidal ideation: No Patient has homicidal ideation: No - Past Medical History Cardiac Medical History: Reports: Hx Hypertension Neurological Medical History: Reports: Hx Migraine Renal/ Medical History: Denies: Hx Peritoneal Dialysis Musculoskeletal Medical History: Reports Hx Arthritis - RA bilat knees Psychiatric Medical History: Reports: Hx Depression Past Surgical History: Reports: Hx Cholecystectomy, Hx Neurologic Surgery - tumor removed, Hx Tubal Ligation. Denies: Hx Hysterectomy - Immunizations Immunizations up to date: Yes Hx Pneumococcal Vaccination: 04/17/11 Review of Systems - Review of Systems Constitutional: See HPI - Facial flushing. EENT: No symptoms reported Cardiovascular: See HPI Respiratory: No symptoms reported -: Yes All other systems reviewed and negative Physical Exam - Vital signs Vitals: Temp Pulse Resp BP Pulse Ox 98.7 F 70 21 H 150/83 H 100 04/15/19 21:24 04/15/19 21:24 04/15/19 21:24 04/15/19 21:24 04/15/19 21:24 Interpretation: Hypertensive - Notes Notes: GENERAL: Alert, interacts well. No acute distress. HEAD: Normocephalic, atraumatic EYES: Pupils right pupil larger than left pupil, this is a chronic finding, rou nd and reactive to light, extraocular movements intact. ENT: Oral mucosa moist, tongue midline. NECK: Full range of motion, supple, trachea midline. LUNGS: Clear to auscultation bilaterally, no wheezes, rales or rhonchi, no respiratory distress. HEART: Regular rate and rhythm, no murmurs, gallops, rubs. ABDOMEN: Soft, nontender, nondistended, bowel sounds present in all 4 quadrants. EXTREMITIES: Moves all 4 extremities spontaneously, no edema, radial and dorsalis pedis pulses 2/4 bilaterally. No cyanosis. NEUROLOGICAL: Alert and oriented x3, normal speech, no facial droop however right pupil is larger than left pupil, this is a chronic finding related to a previous surgery, biceps and patellar DTRs 2+ bilaterally. Finger-nose and vudb-pr-tinn test intact. Able to ambulate without difficulty. PSYCH: Normal mood, normal affect. SKIN: Warm, Dry, normal turgor, no rashes or lesions noted. Course - Re-evaluation Re-evalutation: 04/16/19 01:16 CBC shows leukocytosis of 13.9, physical examination is no signs of infection, CMP shows low CO2 at 21, otherwise unremarkable, initial cardiac enzymes negative, chest x-ray shows no acute process. EKG is nonischemic. Patient is completely symptom-free right now. Patient will have a repeat troponin performed at the 3-hour sabrina. Symptoms have resolved on their own. Blood pressure is improving on its own. 04/16/19 03:34 Repeat troponin also undetectable. Patient is completely asymptomatic, chest pain is completely resolved and has not recurred. Patient is feeling 100% better. Patient will be discharged home, recommended to check her blood pressure twice a day once in the morning and once in the evening, keep a record of this and share with her primary care provider Kimberlee Park. Patient is instructed to return to the emergency department should she develop any further symptoms even if her blood pressure is normal such as severe headache, blurry vi bertram, numbness, tingling, weakness or chest pain. - Vital Signs Vital signs: Temp Pulse Resp BP Pulse Ox 98.7 F 70 21 H 150/83 H 100 04/15/19 21:24 04/15/19 21:24 04/15/19 21:24 04/15/19 21:24 04/15/19 21:24 - Laboratory Result Diagrams: 04/15/19 23:00 04/15/19 23:00 Laboratory results interpreted by me: 04/15/19 04/15/19 23:00 23:00 WBC 13.9 H Hgb 15.6 H Carbon Dioxide 21 L BUN 6 L Direct Bilirubin 0.5 H - EKG Interpretation by Me Additional EKG results interpreted by me: 04/16/19 01:15 EKG shows sinus rhythm at a rate of 64, slight left axis deviation, normal intervals, no ST segment elevations or depressions, rapid R wave progression, T wave inversions in V2 per my interpretation. Discharge - Discharge Clinical Impression: Chest pain with low risk for cardiac etiology Hypertension Qualifiers: Hypertension type: unspecified Qualified Code(s): I10 - Essential (primary) hypertension Condition: Stable Disposition: HOME, SELF-CARE Additional Instructions: Today we did not find any signs of heart attack. Your blood pressure was elevated here however it was significantly improved from when your friend took your blood pressure. Please check your blood pressure once in the morning and once in the evening and keep a diary so that you can share this with Kimberlee Xavier when you see her next. The number itself does not matter on a day-to-day basis if you are not having any symptoms. It is the number over the long-term that we worry about. If your blood pressure is consistently elevated Kimberlee Park will want to adjust your medications. If you are having symptoms with your elevated blood pressure or if you are having chest pain without an elevated blood pressure we want you to return to the emergency department. Referrals: ASHLEY PARKS MD [ACTIVE PROVISIONAL STAFF] - Follow up as needed
[2019-04-16 04:04] VITALS: BP 143/81
--- NOTE | 2019-04-16 07:57 | EKG REPORT ---
SEVERITY:- ABNORMAL ECG - SINUS RHYTHM PROBABLE LEFT ATRIAL ABNORMALITY IRBBB : Confirmed by: Kg Livingston MD 16-Apr-2019 07:56:27
== END 2019-04-16 04:04 | disposition home or self-care (01) ==
LOC: ER 20:20
DX: I10 Essential (primary) hypertension (principal); Z79.899 Other long term (current) drug therapy; R11.0 Nausea; R07.9 Chest pain, unspecified; R23.2 Flushing; D72.829 Elevated white blood cell count, unspecified; F17.200 Nicotine dependence, unspecified, uncomplicated; Z88.0 Allergy status to penicillin
CPT/HCPCS: 36415; 71045; 80053; 82550; 82553; 83735; 84484; 85025; 93005; 93010; 99284

== ENCOUNTER 2019-05-02 13:23 | Emergency (ER) | payer MEDICAID ==
[2019-05-02] MEDS ORDERED: IBUPROFEN 800 MG TABLET PO ONE (14:33)
[2019-05-02] MEDS ORDERED: ACETAMINOPHEN 325 MG TABLET PO ONE (14:34)
--- NOTE | 2019-05-02 14:36 | ER Document Report ---
HPI - HPI Patient complains to provider of: L ankle pain and swelling Time Seen by Provider: 05/02/19 14:29 Context: 49-year-old female presents the emergency department for left ankle pain and swelling. Patient states that she stepped into a hole 2 weeks ago with her right foot and then fell onto her left foot. She is tried usual and customary treatments thinking it was a sprain to include ice, Christian wrap, elevation, ibuprofen with no relief. She said the symptoms of gotten worse and she can no longer bear weight on it. She says that her lateral malleolus is "swelled up like a baseball". - REPRODUCTIVE Reproductive: DENIES: : Past Medical History - Social History Family History: Reviewed & Not Pertinent - Does not know anything about her father., Malignancy - Mother from colon cancer - Past Medical History Cardiac Medical History: Reports: Hx Hypertension Neurological Medical History: Reports: Hx Migraine Renal/ Medical History: Denies: Hx Peritoneal Dialysis Musculoskeletal Medical History: Reports Hx Arthritis - RA bilat knees Psychiatric Medical History: Reports: Hx Depression Past Surgical History: Reports: Hx Cholecystectomy, Hx Neurologic Surgery - tumor removed, Hx Tubal Ligation. Denies: Hx Hysterectomy - Immunizations Immunizations up to date: Yes Hx Pneumococcal Vaccination: 04/17/11 Vertical Provider Document - CONSTITUTIONAL Notes: PHYSICAL EXAMINATION: Reviewed vital signs and charting by RN GENERAL: Alert, interacts well. No acute distress. HEAD: Normocephalic, atraumatic. EYES: Pupils equal and round. Extraocular movements intact. ENT: Oral mucosa moist, tongue midline. NECK: Full range of motion. Trachea midline. EXTREMITIES: Moves all 4 extremities spontaneously. Swelling of the left lateral malleolus with acute tenderness to palpation, 2+ DP pulse in the left foot, brisk cap refill PSYCH: Normal affect, normal mood. SKIN: Warm, dry, normal turgor. No rashes or lesions noted. - INFECTION CONTROL TRAVEL OUTSIDE OF THE [place] IN LAST 30 DAYS: No Course - Vital Signs Vital signs: Temp Pulse Resp BP Pulse Ox 97.9 F 68 18 147/98 H 98 05/02/19 13:52 05/02/19 13:52 05/02/19 13:52 05/02/19 13:52 05/02/19 13:52 Discharge - Discharge Referrals: BRYON STONER NP [Primary Care Provider] - Follow up as needed
--- NOTE | 2019-05-02 15:09 | ER Document Report ---
HPI - HPI Patient complains to provider of: L ankle injury Time Seen by Provider: 05/02/19 14:29 Pain Level: 5 Context: 49-year-old female presents the emergency department with left ankle injury. She fell 2 weeks ago on it and tried usual and customary treatments to include ice, Christian wrap, ibuprofen and it did not get better. She can now no longer bear weight on it and the swelling has increased over the left lateral malleolus that she describes as a "the size of a baseball". - REPRODUCTIVE LMP: 04/25/19 Reproductive: DENIES: : Past Medical History - Social History Smoking Status: Current Every Day Smoker Chew tobacco use (# tins/day): No Frequency of alcohol use: Rare Drug Abuse: None Family History: Reviewed & Not Pertinent - Does not know anything about her father., Malignancy - Mother from colon cancer Patient has suicidal ideation: No Patient has homicidal ideation: No - Past Medical History Cardiac Medical History: Reports: Hx Hypertension Neurological Medical History: Reports: Hx Migraine Renal/ Medical History: Denies: Hx Peritoneal Dialysis Musculoskeletal Medical History: Reports Hx Arthritis - RA bilat knees Psychiatric Medical History: Reports: Hx Depression Past Surgical History: Reports: Hx Cholecystectomy, Hx Neurologic Surgery - tumor removed, Hx Tubal Ligation. Denies: Hx Hysterectomy - Immunizations Immunizations up to date: Yes Hx Pneumococcal Vaccination: 04/17/11 Vertical Provider Document - CONSTITUTIONAL Notes: PHYSICAL EXAMINATION: Reviewed vital signs and charting by RN GENERAL: Alert, interacts well. No acute distress. HEAD: Normocephalic, atraumatic. EYES: Pupils equal and round. Extraocular movements intact. ENT: Oral mucosa moist, tongue midline. NECK: Full range of motion. Trachea midline. EXTREMITIES: Moves all 4 extremities spontaneously. Moderate edema over the left lateral malleolus with acute tenderness to palpation over the entire area, strong 2+ DP pulse with brisk cap refill, no ecchymosis, skin is warm and dry, patient cannot bear weight on it and has difficulty with ankle flexion and extension PSYCH: Normal affect, normal mood. SKIN: Warm, dry, normal turgor. No rashes or lesions noted. - INFECTION CONTROL TRAVEL OUTSIDE OF THE [place] IN LAST 30 DAYS: No Course - Re-evaluation Re-evalutation: 05/02/19 15:51 X-ray reveals an avulsion fracture of the left fibula. Plan is to place her in a short leg posterior and give her a referral for orthopedics. Will provide crutches for teaching. For discharge. - Vital Signs Vital signs: Temp Pulse Resp BP Pulse Ox 97.9 F 68 18 147/98 H 98 05/02/19 13:52 05/02/19 13:52 05/02/19 13:52 05/02/19 13:52 05/02/19 13:52 Discharge - Discharge Clinical Impression: Left ankle swelling Left fibular fracture Qualifiers: Encounter type: initial encounter Fibula location: distal Fracture type: closed Fracture morphology: other fracture Qualified Code(s): S82.832A - Other fracture of upper and lower end of left fibula, initial encounter for closed fracture Left ankle pain Qualifiers: Chronicity: acute Qualified Code(s): M25.572 - Pain in left ankle and joints of left foot Condition: Good Disposition: HOME, SELF-CARE Additional Instructions: You broke your ankle. I have placed you in a splint. I want you to follow-up with orthopedics. I am giving you the information. Please follow-up with them in the next day or 2. Please return to the emergency department if the swelling gets worse. Your toes start to turn purple or black, you lose sensation in your foot, or you have any other concerning symptoms Referrals: BRYON STONER NP [Primary Care Provider] - Follow up as needed SARAH MONTANA MD [ACTIVE PROVISIONAL STAFF] - Follow up tomorrow
--- NOTE | 2019-05-02 15:34 | RADIOLOGY REPORT (SQ) ---
EXAM DESCRIPTION: ANKLE LEFT COMPLETE COMPLETED DATE/TIME: 05/02/2019 3:17 pm REASON FOR STUDY: Fall cannot bear weight, swelling COMPARISON: None. NUMBER OF VIEWS: Three views. TECHNIQUE: AP, lateral, and oblique radiographic images acquired of the left ankle. LIMITATIONS: None. FINDINGS: MINERALIZATION: Normal. BONES: Acute avulsion fracture of the lateral malleolus. There is no other fracture. The ankle mort ise and talar dome are intact JOINTS: No effusions. SOFT TISSUES: Soft tissue swelling centered around the lateral malleolus. OTHER: Enthesophytes at the calcaneal insertion of the plantar fascia. IMPRESSION: Acute avulsion fracture of the lateral malleolus. TECHNICAL DOCUMENTATION: JOB ID: [id number] [employer]- All Rights Reserved Reading location - IP/workstation name: [email or web address]
[2019-05-02 16:59] VITALS: BP 152/87
== END 2019-05-02 16:45 | disposition home or self-care (01) ==
LOC: ER 13:23
DX: S82.62XA Displaced fracture of lateral malleolus of left fibula, initial encounter for closed fracture (principal); M25.572 Pain in left ankle and joints of left foot; W19.XXXA Unspecified fall, initial encounter; F17.200 Nicotine dependence, unspecified, uncomplicated; I10 Essential (primary) hypertension
CPT/HCPCS: 99283; 73610; 29515; J3490 ×2

== ENCOUNTER 2019-05-04 14:13 | Emergency (ER) | payer MEDICAID ==
[2019-05-04 14:22] VITALS: BP 142/108
--- NOTE | 2019-05-04 14:52 | ER Document Report ---
HPI - HPI Time Seen by Provider: 05/04/19 14:39 Context: Patient is a 49-year-old female presents to the emergency department with a chief complaint of STD check. Patient is here for 2 reasons. Patient states she would like to be checked for STDs. Patient denies pelvic pain, vaginal discharge or vaginal bleeding. Patient reports she is concerned that her significant other may be sleeping around. Patient denies urinary symptoms. Patient denies abdominal pain or fever. Patient also requesting that she have her left lower leg splint replaced as it has gotten wet. Patient reports she has been walking on it despite being told to use the crutches and that the dressing has become loose. Patient denies any new or worsening ankle pain, numbness or tingling to the toes distal to the extremity or increased swelling. - REPRODUCTIVE Reproductive: DENIES: : Past Medical History - General Information source: Patient - Social History Smoking Status: Unknown if Ever Smoked Lives with: Spouse/Significant other Family History: Reviewed & Not Pertinent - Does not know anything about her father., Malignancy - Mother from colon cancer - Past Medical History Cardiac Medical History: Reports: Hx Hypertension Pulmonary Medical History: Reports: None EENT Medical History: Reports: None Neurological Medical History: Reports: Hx Migraine Endocrine Medical History: Reports: None Renal/ Medical History: Reports: None. Denies: Hx Peritoneal Dialysis Malignancy Medical History: Reports: None GI Medical History: Reports: None Musculoskeletal Medical History: Reports Hx Arthritis - RA bilat knees Skin Medical History: Reports None Psychiatric Medical History: Reports: Hx Depression Traumatic Medical History: Reports: None Infectious Medical History: Reports: None Past Surgical History: Reports: Hx Cholecystectomy, Hx Neurologic Surgery - tumor removed, Hx Tubal Ligation. Denies: Hx Hysterectomy - Immunizations Immunizations up to date: Yes Hx Pneumococcal Vaccination: 04/17/11 Vertical Provider Document - CONSTITUTIONAL Agree With Documented VS: Yes Exam Limitations: No Limitations General Appearance: No Apparent Distress - INFECTION CONTROL TRAVEL OUTSIDE OF THE [place] IN LAST 30 DAYS: No - HEENT HEENT: Atraumatic, Normocephalic, PERRLA - NECK Neck: Normal Inspection - RESPIRATORY Respiratory: Breath Sounds Normal, No Respiratory Distress - CARDIOVASCULAR Cardiovascular: Regular Rate, Regular Rhythm - GI/ABDOMEN Gastrointestinal: Abdomen Soft, Abdomen Non-Tender, Normal Bowel Sounds - MUSCULOSKELETAL/EXTREMETIES Notes: Patient has a short leg posterior splint noted to the left lower extremity. This is loosely dressed. There is no significant edema or discoloration of the toes. Patient's toes are warm to touch and pink. Patient able to freely move her toes. - NEURO Level of Consciousness: Awake, Alert, Appropriate - DERM Integumentary: Warm, Dry, No Rash Course - Re-evaluation Re-evalutation: 05/04/19 15:10 Patient was originally placed in a short leg posterior splint as previously documented at her visit. We will remove this splint and place a new one as this 1 has become wet and extremely loose. Patient reports she did not follow-up with orthopedic as of yet but will call them tomorrow for a follow-up appointment. I did offer to treat the patient prophylactically for gonorrhea and chlamydia. Patient states she would like to wait for the results. Will obtain a dirty urine. I do not believe a pelvic examination is necessary at this time as the patient does not have any pelvic pain, vaginal discharge or vaginal bleeding. 05/04/19 15:12 - Vital Signs Vital signs: Temp Pulse Resp BP Pulse Ox 99.7 F 80 16 142/108 H 96 05/04/19 14:20 05/04/19 14:20 05/04/19 14:20 05/04/19 14:20 05/04/19 14:20 Procedures - Immobilization Left Lower Leg Pre-Proc Neuro Vasc Exam: Normal Immobilizer type: Short Leg Posterior Performed by: PCT Post-Proc Neuro Vasc Exam: Normal, Unchanged from pre-exam Alignment checked and good: Yes Discharge - Discharge Clinical Impression: Concern about STD in female without diagnosis Left ankle pain Qualifiers: Chronicity: acute Qualified Code(s): M25.572 - Pain in left ankle and joints of left foot Condition: Stable Disposition: HOME, SELF-CARE Additional Instructions: Today you are seen the emergency department for two reasons: *You are seen in the emergency department for a loose splint. We have removed the old splint and placed a new short leg posterior. Please keep this clean dry and intact. Please call orthopedics tomorrow to establish a follow-up appointment. Please continue to use your crutches. *You are also tested for gonorrhea and chlamydia. You have opted not to get prophylactically treated. You will be contacted if these become positive. If you do develop any urinary symptoms or vaginal discharge please return to the emergency department. Splint Precautions A splint has been placed. This will protect the area while healing begins. Your problem does NOT normally require a cast. It MUST, however, be held still! Keep the splint on ALL THE TIME until instructed to remove it by the doctor. As you begin to use the area, be careful. You shouldn't do anything which causes discomfort -- you may disturb the injury even with the splint in place. After the initial period of rest and elevation, if splint does not prevent pain when you move, come back. You may require placement of a different splint, or a cast. If there is unexpected severe pain, or numbness, discoloration, or swelling beyond the splint, you should return at once. If you feel that the splint has broken or become loose, come back. Splint Pending Casting Your injury can't be casted until the swelling has subsided. Therefore, a temporary splint has been placed to protect the injury. Full use of an injured area is not possible in a splint. You should follow the doctor's instructions concerning rest, ice, and elevation of the injury. Never do anything which causes pain under the splint. Keep the splint on ALL THE TIME until you return for casting. If there is unexpected severe pain, or numbness, discoloration, or swelling beyond the splint, you should return at once. Referrals: BRYON STONER NP [Primary Care Provider] - Follow up as needed
[2019-05-04 16:53] LABS: CHLAM PCR NOT DETECTED (NOT DETECT)
== END 2019-05-04 15:43 | disposition home or self-care (01) ==
LOC: ER 14:13
DX: Z20.2 Contact with and (suspected) exposure to infections with a predominantly sexual mode of transmission (principal); M25.572 Pain in left ankle and joints of left foot
CPT/HCPCS: 87491; 87591; 99283

== ENCOUNTER 2019-05-06 14:59 | Emergency (ER) | payer MEDICAID ==
--- NOTE | 2019-05-06 15:26 | ER Document Report ---
ED Medical Screen (RME) - General Chief Complaint: Rib Pain Stated Complaint: RIB PAIN Time Seen by Provider: 05/06/19 15:21 Primary Care Provider: BRYON STONER NP [Primary Care Provider] - Follow up as needed Mode of Arrival: Medic Information source: Patient Notes: This 49-year-old female presents emergency department via EMS for treatment of her STD. Upon arrival temperature was taken it was 102.8. Patient reports bilateral flank pain stomach pain. Denies vomiting diarrhea. Denies vaginal discharge. Complains of nausea and flank pain. I have greeted and performed a rapid initial assessment of this patient. A comprehensive ED assessment and evaluation of the patient, analysis of test results and completion of the medical decision making process will be conducted by additional ED providers. Dictation of this chart was performed using voice recognition software; therefore, there may be some unintended grammatical errors. TRAVEL OUTSIDE OF THE [place] IN LAST 30 DAYS: No - Related Data Allergies/Adverse Reactions: Penicillins Allergy (Intermediate, Verified 04/15/19 21:27) Hives Past Medical History - Social History Family history: Reviewed & Not Pertinent - Past Medical History Cardiac Medical History: Reports: Hx Hypertension Neurological Medical History: Reports: Hx Migraine Renal/ Medical History: Denies: Hx Peritoneal Dialysis Musculoskeltal Medical History: Reports Hx Arthritis - RA bilat knees Psychiatric Medical History: Reports: Hx Depression Past Surgical History: Reports: Hx Cholecystectomy, Hx Neurologic Surgery - tumor removed, Hx Tubal Ligation. Denies: Hx Hysterectomy - Immunizations Immunizations up to date: Yes Physical Exam - Vital signs Vitals: Temp Pulse Resp BP Pulse Ox 102.9 F H 109 H 16 136/92 H 96 05/06/19 15:17 05/06/19 15:17 05/06/19 15:17 05/06/19 15:17 05/06/19 15:17 Course - Vital Signs Vital signs: Temp Pulse Resp BP Pulse Ox 102.9 F H 109 H 16 136/92 H 96 05/06/19 15:17 05/06/19 15:17 05/06/19 15:17 05/06/19 15:17 05/06/19 15:17 Doctor's Discharge - Discharge Referrals: BRYON STONER NP [Primary Care Provider] - Follow up as needed
[2019-05-06] MEDS ORDERED: KETOROLAC TROMETHAMINE INJ/PF 30 MG/1 ML SDV IV ONE (15:27)
[2019-05-06] MEDS ORDERED: ONDANSETRON HCL INJ/PF 4 MG/2 ML SDV IV ONE (15:27)
[2019-05-06] MEDS ORDERED: ACETAMINOPHEN 325 MG TABLET PO ONE (15:32)
[2019-05-06 17:07] LABS: HEMATOCRIT 43.9 % (36.0-47.0); HEMOGLOBIN 15.1 g/dL (12.0-15.5); MEAN CORPUSCULAR HEMOGLOBIN 30.9 pg (27.0-33.4); MEAN CORPUSCULAR HGB CONC 34.4 g/dL (32.0-36.0); MEAN CORPUSCULAR VOLUME 90 fl (80-97); PLATELET COUNT 203 10^3/uL (150-450); RED BLOOD COUNT 4.89 10^6/uL (3.72-5.28); RED CELL DISTRIBUTION WIDTH 12.9 % (11.5-14.0); WHITE BLOOD COUNT 20.8 10^3/uL (4.0-10.5)
[2019-05-06] MEDS ORDERED: NORMAL SALINE IV ONE (17:09)
[2019-05-06 17:15] LABS: APPEARANCE,URINE CLEAR; BILIRUBIN,URINE NEGATIVE (NEGATIVE); COLOR,URINE YELLOW; GLUCOSE, URINE NEGATIVE (NEGATIVE); KETONES,URINE 20 mg/dL (NEGATIVE); PROTEIN,URINE 100 mg/dL (NEGATIVE); URINE SPECIFIC GRAVITY 1.018; UROBILINOGEN,URINE NEGATIVE mg/dL (<2.0)
[2019-05-06 17:26] LABS: ABSOLUTE LYMPHOCYTES# (MANUAL) 1.7 10^3/uL (0.5-4.7); ABSOLUTE MONOCYTES # (MANUAL) 1.2 10^3/uL (0.1-1.4); BAND NEUTROPHILS % (MANUAL) 4 % (3-5); BASOPHILS % (MANUAL) 0 % (0-2); EOSINOPHILS % (MANUAL) 0 % (0-6); LYMPHOCYTES % (MANUAL) 7 % (13-45); MONOCYTES % (MANUAL) 6 % (3-13); PLATELET COMMENT ADEQUATE; RBC MORPHOLOGY COMMENT NORMO-CYTIC/CHROMIC; SEGMENTED NEUTROPHILS % (MAN) 82 % (42-78); TOTAL CELLS COUNTED 100
[2019-05-06 17:28] LABS: ALKALINE PHOSPHATASE 76 U/L (38-126); ANION GAP 11 (5-19); ASPARTATE AMINO TRANSFERASE 22 U/L (14-36); BILIRUBIN,DIRECT 0.3 mg/dL (0.0-0.4); BILIRUBIN,TOTAL 0.8 mg/dL (0.2-1.3); BLOOD UREA NITROGEN 11 mg/dL (7-20); CALCIUM 9.4 mg/dL (8.4-10.2); CARBON DIOXIDE 20 mmol/L (22-30); CHLORIDE 106 mmol/L (98-107); GLUCOSE 108 mg/dL (75-110); POTASSIUM 3.9 mmol/L (3.6-5.0); TOTAL PROTEIN 6.9 g/dL (6.3-8.2)
--- NOTE | 2019-05-06 18:17 | RADIOLOGY REPORT (SQ) ---
EXAM DESCRIPTION: CT ABD/PELVIS WITH IV ONLY COMPLETED DATE/TIME: 05/06/2019 6:02 pm REASON FOR STUDY: pain/fever COMPARISON: None. TECHNIQUE: CT scan of the abdomen and pelvis performed using helical scanning technique with dynamic intravenous contrast injection. No oral contrast. Images reviewed with lung, soft tissue, and bone w indows. Reconstructed coronal and sagittal MPR images reviewed. Delayed images for evaluation of the urinary system also acquired. All images stored on PACS. All CT scanners at this facility use dose modulation, iterative reconstruction, and/or weight based d osing when appropriate to reduce radiation dose to as low as reasonably achievable (ALARA). [facility]: Dose Right [facility]: CareDose [facility]: Dose Right [facility]: Teradose 4D [facility]: [facility] CONTRAST TYPE AND DOSE: contrast/concentration: Isovue 350.00 mg/ml; Total Contrast Delivered: 94.2 ml; Total Saline Delivered: 22.0 ml RENAL FUNCTION: None required. The patient is less than 50 years old. RADIATION DOSE: CT Rad equipment meets quality standard of care and radiation dose reduction techniq ues were employed. CTDIvol: NaN - NaN mGy. DLP: 0 mGy-cm.. LIMITATIONS: None. FINDINGS: LOWER CHEST: No significant findings. LIVER: Normal size. No enhancing masses. No dilated ducts. SPLEEN: Normal size. No focal lesions. PANCREAS: No masses identified. No significant calcifications. No adjacent inflammation or peripancre atic fluid collections. Pancreatic duct not dilated. GALLBLADDER: Surgically absent. ADRENAL GLANDS: No significant masses. RIGHT KIDNEY AND URETER: No cysts identified. No solid masses identified. No calcified stones. No hyd ronephrosis or hydroureter. LEFT KIDNEY AND URETER: No cysts identified. 5 mm calcified stone in the proximal left ureter with mi ld hydronephrosis and patchy parenchymal hypoperfusion with adjacent pararenal fat stranding suggesti ng pyelonephritis. AORTA AND VESSELS: No aneurysm. No dissection. Renal arteries, SMA, celiac without significant stenos is. RETROPERITONEUM: No bulky retroperitoneal adenopathy. BOWEL AND PERITONEAL CAVITY: No obstruction or inflammatory changes. No free fluid. APPENDIX: Normal. PELVIS: No mass. No free fluid. Unremarkable bladder. ABDOMINAL WALL: No masses. No hernias. BONES: No acute findings. OTHER: No other significant finding. IMPRESSION: 5 mm calcified stone in the proximal left ureter with mild hydronephrosis and patchy par enchymal hypoperfusion with adjacent pararenal fat stranding suggesting pyelonephritis. TECHNICAL DOCUMENTATION: JOB ID: [id number] [place]-72 Quality ID # [id number]: Final reports with documentation of one or more dose reduction techniques (e.g., Au tomated exposure control, adjustment of the mA and/or kV according to patient size, use of iterative reconstruction technique) 2010 [employer]- All Rights Reserved Reading location - IP/workstation name: [email or web address]
--- NOTE | 2019-05-06 18:19 | RADIOLOGY REPORT (SQ) ---
EXAM DESCRIPTION: CHEST 2 VIEWS COMPLETED DATE/TIME: 05/06/2019 6:09 pm REASON FOR STUDY: cp/fever COMPARISON: 04/15/2019 TECHNIQUE: Frontal and lateral radiographic views of the chest acquired. NUMBER OF VIEWS: Two view. LIMITATIONS: None. FINDINGS: LUNGS AND PLEURA: No pneumothorax. No consolidation or pleural effusion. MEDIASTINUM AND HILAR STRUCTURES: Stable. HEART AND VASCULAR STRUCTURES: Stable. BONES: No acute findings. HARDWARE: None in the chest. OTHER: No other significant finding. IMPRESSION: NO ACUTE FINDINGS. TECHNICAL DOCUMENTATION: JOB ID: [id number] [place]-72 2010 [employer]- All Rights Reserved Reading location - IP/workstation name: [email or web address]
[2019-05-06] MEDS ORDERED: LEVOFLOXACIN 750 MG/D5W RTU 750 MG/150 ML RTUPB IV ONE (18:32)
[2019-05-06 18:34] LABS: VENOUS BLOOD BASE EXCESS -3.6 mmol/L; VENOUS BLOOD HCO3 19.7 mmol/L (20-32); VENOUS BLOOD PCO2 31.6 mmHg (35-63); VENOUS BLOOD PH 7.41 (7.30-7.42)
[2019-05-06] MEDS ORDERED: CEFTRIAXONE 2 GM/D5W RTU 2 GM/50 ML RTUPB IV ONE (18:40)
--- NOTE | 2019-05-06 18:47 | ER Document Report ---
ED General - General Chief Complaint: STD Exposure Stated Complaint: RIB PAIN Time Seen by Provider: 05/06/19 15:21 Primary Care Provider: BRYON STONER NP [Primary Care Provider] - Follow up as needed Mode of Arrival: Medic Information source: Patient TRAVEL OUTSIDE OF THE [place] IN LAST 30 DAYS: No - HPI Notes: Patient returns the hospital because she was called by the follow-up nurse. The follow-up nurse noticed that she had gonorrhea in her urine so she called the patient to return for treatment. Patient comes in stating that she has been feeling bad and having diffuse bilateral lower abdominal crampy pain as well as back pain. She states she has had some nausea and vomiting. She denies any fever sweats or chills. She has had some vaginal discharge but no bleeding. No problems with stools. No rashes. No recent trauma. The pain in the abdomen has been bilateral lower and crampy. Is been moderate to severe. It radiates to her back. Nothing makes it better or worse. - Related Data Allergies/Adverse Reactions: Penicillins Allergy (Intermediate, Verified 04/15/19 21:27) Hives Home Medications: water pill (orange), gabapentin, motrin 800mg Past Medical History - General Information source: Patient - Social History Smoking Status: Current Every Day Smoker Frequency of alcohol use: None Drug Abuse: None Family History: Reviewed & Not Pertinent - Does not know anything about her father., Malignancy - Mother from colon cancer Patient has suicidal ideation: No Patient has homicidal ideation: No - Past Medical History Cardiac Medical History: Reports: Hx Hypertension Neurological Medical History: Reports: Hx Migraine Renal/ Medical History: Denies: Hx Peritoneal Dialysis Musculoskeletal Medical History: Reports Hx Arthritis - RA bilat knees Psychiatric Medical History: Reports: Hx Depression Past Surgical History: Reports: Hx Cholecystectomy, Hx Neurologic Surgery - tumor removed, Hx Tubal Ligation. Denies: Hx Hysterectomy - Immunizations Immunizations up to date: Yes Hx Pneumococcal Vaccination: 04/17/11 Review of Systems - Review of Systems Constitutional: Chills, Fever, Malaise, Weakness Cardiovascular: denies: Chest pain, Palpitations Respiratory: denies: Cough, Short of breath Gastrointestinal: Abdominal pain, Nausea, Vomiting -: Yes All other systems reviewed and negative Physical Exam - Vital signs Vitals: Temp Pulse Resp BP Pulse Ox 102.9 F H 109 H 16 136/92 H 96 05/06/19 15:17 05/06/19 15:17 05/06/19 15:17 05/06/19 15:17 05/06/19 15:17 Interpretation: Tachycardic, Febrile - General General appearance: Appears well, Alert In distress: None - HEENT Head: Normocephalic, Atraumatic Eyes: Normal Pupils: PERRL - Respiratory Respiratory status: No respiratory distress Chest status: Nontender Breath sounds: Normal Chest palpation: Normal - Cardiovascular Rhythm: Regular Heart sounds: Normal auscultation Murmur: No - Abdominal Inspection: Normal Distension: No distension Bowel sounds: Normal Tenderness: Tender - Mild diffuse bilateral in the lower quadrants. No rebound or guarding. Organomegaly: No organomegaly - Back Back: Normal, Nontender - Extremities General upper extremity: Normal inspection, Nontender, Normal color, Normal ROM, Normal temperature General lower extremity: Normal inspection, Nontender, Normal color, Normal ROM, Normal temperature, Normal weight bearing. No: Janet's sign - Neurological Neuro grossly intact: Yes Cognition: Normal Orientation: AAOx4 Paulo Coma Scale Eye Opening: Spontaneous Norman Coma Scale Verbal: Oriented Norman Coma Scale Motor: Obeys Commands Paulo Coma Scale Total: 15 Speech: Normal Motor strength normal: LUE, RUE, LLE, RLE Sensory: Normal - Psychological Associated symptoms: Normal affect, Normal mood - Skin Skin Temperature: Warm Skin Moisture: Dry Skin Color: Normal Course - Re-evaluation Re-evalutation: 05/06/19 18:[address] scan returned showing a 5 mm proximal impacted stone. It appears impacted because patient also has hydro-. She has had pain in this area as well as in the lower abdomen. She has a white count of 22,000 and an infected urine. At this time she is receiving sepsis fluids as well as antibiotics. I have consulted [facility] and will have her transferred there for the care of urology. For her gonorrhea she has been treated with Rocephin. - Vital Signs Vital signs: Temp Pulse Resp BP Pulse Ox 102.9 F H 109 H 16 136/92 H 96 05/06/19 15:17 05/06/19 15:17 05/06/19 15:17 05/06/19 15:17 05/06/19 15:17 - Laboratory Result Diagrams: 05/06/19 16:34 05/06/19 16:34 Laboratory results interpreted by me: 05/06/19 05/06/19 05/06/19 16:34 16:34 16:34 WBC 20.8 H Seg Neuts % (Manual) 82 H Lymphocytes % (Manual) 7 L Abs Neuts (Manual) 17.9 H VBG pCO2 VBG HCO3 Carbon Dioxide 20 L Est GFR (MDRD) Non-Af 54 L Urine Protein 100 H Urine Ketones 20 H Urine Blood MODERATE H Urine Nitrite (Reflex) POSITIVE H Leukocyte Esterase Rfl MODERATE H 05/06/19 18:19 WBC Seg Neuts % (Manual) Lymphocytes % (Manual) Abs Neuts (Manual) VBG pCO2 31.6 L VBG HCO3 19.7 L Carbon Dioxide Est GFR (MDRD) Non-Af Urine Protein Urine Ketones Urine Blood Urine Nitrite (Reflex) Leukocyte Esterase Rfl - Diagnostic Test Radiology reviewed: Image reviewed, Reports reviewed Critical Care Note - Critical Care Note Total time excluding time spent on procedures (mins): 50 Comments: 50 minutes of critical care time were spent on this patient. This included multiple reassessments. It included reviewing imaging and laboratories. It included reviewing old records. It included talking with consultants and patient. Discharge - Discharge Clinical Impression: Kidney stone on left side UTI (urinary tract infection) Qualifiers: Urinary tract infection type: acute pyelonephritis Qualified Code(s): N10 - Acute pyelonephritis Sepsis Qualifiers: Sepsis type: sepsis due to unspecified organism Sepsis acute organ dysfunction status: without acute organ dysfunction Qualified Code(s): A41.9 - Sepsis, unspecified organism Condition: Stable Disposition: [facility] Referrals: BRYON STONER NP [Primary Care Provider] - Follow up as needed
[2019-05-07 00:04] VITALS: BP 130/85
--- NOTE | 2019-05-07 00:22 | ER Document Report ---
Doctor's Note Notes: 05/07/19 00:21 Patient has been reevaluated and is stable for transport to receiving facility.
== END 2019-05-07 00:41 | disposition short-term general hospital (02) ==
LOC: ER 14:59
DX: N20.0 Calculus of kidney (principal); N10 Acute pyelonephritis; A41.9 Sepsis, unspecified organism; R07.81 Pleurodynia; R50.9 Fever, unspecified; R10.9 Unspecified abdominal pain; R10.84 Generalized abdominal pain; I10 Essential (primary) hypertension; Z88.0 Allergy status to penicillin; Z90.49 Acquired absence of other specified parts of digestive tract; Z98.51 Tubal ligation status; Z20.2 Contact with and (suspected) exposure to infections with a predominantly sexual mode of transmission
CPT/HCPCS: 99285; 96361; 96375; 96365; 36415; 87040; 87086; 85025; 81025; 87077; 87088; 80053; 81001; 82803; 83605; 71046; 74177; J3490; J1885; J2405; J7030; J0696; 87186

== ENCOUNTER 2019-06-07 17:02 | Emergency (ER) | payer MEDICAID ==
[2019-06-07] MEDS ORDERED: OXYCODONE-ACETAMINOPHEN 5-325 MG TABLET PO ONE (17:30)
--- NOTE | 2019-06-07 17:31 | ER Document Report ---
ED Medical Screen (RME) - General Chief Complaint: Flank Pain Stated Complaint: FLANK PAIN, LOW BACK PAIN Time Seen by Provider: 06/07/19 17:24 Primary Care Provider: BRYON STONER NP [Primary Care Provider] - Follow up as needed Information source: Patient Notes: Patient presents with left flank pain for the past 3 weeks. Patient reports fever of 103 at home. Patient complains of dysuria. Patient reports being recently treated for chlamydia and wants to be checked to be sure that it is gone. Patient has a history of kidney stones and has had a procedure to manage her stones although is uncertain exactly what she had done. I have greeted and performed a rapid initial assessment of this patient. A comprehensive ED assessment and evaluation of the patient, analysis of test res ults and completion of the medical decision making process will be conducted by additional ED providers. TRAVEL OUTSIDE OF THE [place] IN LAST 30 DAYS: No - Related Data Allergies/Adverse Reactions: Penicillins Allergy (Intermediate, Verified 06/07/19 17:22) Hives Home Medications: Motrin, tramadol, docusate sodium, culturelle, flomax, gabapentin, HCTZ Past Medical History - Social History Chew tobacco use (# tins/day): No Frequency of alcohol use: None Drug Abuse: None Family history: Reviewed & Not Pertinent - Past Medical History Cardiac Medical History: Reports: Hx Hypertension Neurological Medical History: Reports: Hx Migraine Renal/ Medical History: Denies: Hx Peritoneal Dialysis Musculoskeltal Medical History: Reports Hx Arthritis - RA bilat knees Psychiatric Medical History: Reports: Hx Depression Past Surgical History: Reports: Hx Cholecystectomy, Hx Neurologic Surgery - tumor removed, Hx Tubal Ligation. Denies: Hx Hysterectomy - Immunizations Immunizations up to date: Yes Physical Exam - Vital signs Vitals: Temp Pulse Resp BP Pulse Ox 97.7 F 82 18 159/113 H 97 06/07/19 17:06 06/07/19 17:06 06/07/19 17:06 06/07/19 17:06 06/07/19 17:06 - Back Back: CVA tenderness - Left Course - Vital Signs Vital signs: Temp Pulse Resp BP Pulse Ox 97.7 F 82 18 159/113 H 97 06/07/19 17:06 06/07/19 17:06 06/07/19 17:06 06/07/19 17:06 06/07/19 17:06 Doctor's Discharge - Discharge Referrals: BRYON STONER NP [Primary Care Provider] - Follow up as needed
[2019-06-07 18:07] LABS: APPEARANCE,URINE CLOUDY; BILIRUBIN,URINE NEGATIVE (NEGATIVE); COLOR,URINE RED; GLUCOSE, URINE NEGATIVE (NEGATIVE); KETONES,URINE NEGATIVE (NEGATIVE); LEUKOCYTE ESTERASE,URINE MODERATE (NEGATIVE); NITRITE,URINE NEGATIVE (NEGATIVE); PROTEIN,URINE 100 mg/dL (NEGATIVE); URINE SPECIFIC GRAVITY 1.015; UROBILINOGEN,URINE NEGATIVE mg/dL (<2.0)
--- NOTE | 2019-06-07 18:19 | RADIOLOGY REPORT (SQ) ---
EXAM DESCRIPTION: U/S RETROPERITON (RENAL/AORTA) COMPLETED DATE/TIME: 06/07/2019 6:02 pm REASON FOR STUDY: L flank pain, hx stones COMPARISON: CT dated 05/06/2019. TECHNIQUE: Dynamic and static grayscale images acquired of the kidneys and bladder and recorded on P ACS. Additional selected color Doppler and spectral images recorded. LIMITATIONS: None. FINDINGS: RIGHT KIDNEY: Normal size. Normal echogenicity. No solid or suspicious masses. No hydronep hrosis. No calcifications. LEFT KIDNEY: Normal size. Normal echogenicity. No solid or suspicious masses. Mild pelvocaliectasis . 6 mm calculus in the upper pole. BLADDER: Empty. OTHER FINDINGS: No other significant finding. IMPRESSION: 6 MM CALCULUS IN THE UPPER POLE OF THE LEFT KIDNEY. MILD PELVOCALIECTASIS OF THE LEFT K IDNEY. NO ABNORMAL FINDINGS IN THE RIGHT KIDNEY. TECHNICAL DOCUMENTATION: JOB ID: [id number] [employer]- All Rights Reserved Reading location - IP/workstation name: [email or web address]
[2019-06-07 19:10] LABS: ABSOLUTE BASOPHILS # (AUTO) 0.1 10^3/uL (0.0-0.2); ABSOLUTE EOSINOPHILS # (AUTO) 0.3 10^3/uL (0.0-0.6); ABSOLUTE LYMPHOCYTES (AUTO) 3.3 10^3/uL (0.5-4.7); ABSOLUTE MONOCYTES (AUTO) 0.7 10^3/uL (0.1-1.4); ABSOLUTE NEUT (AUTO) 6.2 10^3/uL (1.7-8.2); BASOPHILS % (AUTO) 0.6 % (0-2); HEMATOCRIT 43.5 % (36.0-47.0); HEMOGLOBIN 14.2 g/dL (12.0-15.5); LYMPHOCYTES % (AUTO) 30.7 % (13-45); MEAN CORPUSCULAR HEMOGLOBIN 30.4 pg (27.0-33.4); MEAN CORPUSCULAR HGB CONC 32.6 g/dL (32.0-36.0); MEAN CORPUSCULAR VOLUME 93 fl (80-97); MONOCYTES % (AUTO) 6.9 % (3-13); PLATELET COUNT 228 10^3/uL (150-450); RED BLOOD COUNT 4.67 10^6/uL (3.72-5.28); RED CELL DISTRIBUTION WIDTH 13.7 % (11.5-14.0); SEGMENTED NEUTROPHILS % (AUTO) 58.8 % (42-78); TOTAL CELLS COUNTED % (AUTO) 100 %; WHITE BLOOD COUNT 10.6 10^3/uL (4.0-10.5)
[2019-06-07 19:27] LABS: CHLAM PCR NOT DETECTED (NOT DETECT)
[2019-06-07 19:31] LABS: ALBUMIN 3.7 g/dL (3.5-5.0); ALKALINE PHOSPHATASE 79 U/L (38-126); ANION GAP 8 (5-19); ASPARTATE AMINO TRANSFERASE 15 U/L (14-36); BILIRUBIN,DIRECT 0.2 mg/dL (0.0-0.4); BILIRUBIN,TOTAL 0.4 mg/dL (0.2-1.3); BLOOD UREA NITROGEN 7 mg/dL (7-20); CALCIUM 9.1 mg/dL (8.4-10.2); CARBON DIOXIDE 25 mmol/L (22-30); CHLORIDE 106 mmol/L (98-107); GLUCOSE 84 mg/dL (75-110); POTASSIUM 3.3 mmol/L (3.6-5.0); TOTAL PROTEIN 6.6 g/dL (6.3-8.2)
--- NOTE | 2019-06-07 20:36 | ER Document Report ---
ED GI/ - General Chief Complaint: Flank Pain Stated Complaint: FLANK PAIN, LOW BACK PAIN Time Seen by Provider: 06/07/19 17:24 Primary Care Provider: BRYON STONER NP [Primary Care Provider] - Follow up as needed Notes: Patient is a 49-year-old female who presents to the emergency department with a chief complaint of flank pain. Patient reports she was advised in hospital about 3 weeks ago and had a left ureteral stent placed. Patient reports she had this placed because she was having a back edge of fluid to the left kidney due to a stone. Patient reports since then she has had an uncomfortable feeling to the left flank area and would like the stent out. Patient reports she has not followed up with her urologist. Patient reports a few days ago she developed nausea without vomiting. Patient reports she did have 103 temperature. Patient reports she is urinating unable to pass urine without much discomfort. Patient denies abdominal pain. Patient also states that she is having a vaginal dischar ge that is white in color and foul-smelling. Patient also reports that she was treated for chlamydia a few weeks ago and like to know if this treated appropriately so she can have sexual intercourse again. TRAVEL OUTSIDE OF THE [place] IN LAST 30 DAYS: No - Related Data Allergies/Adverse Reactions: Penicillins Allergy (Intermediate, Verified 06/07/19 17:22) Hives Home Medications: Motrin, tramadol, docusate sodium, culturelle, flomax, gabapentin, HCTZ Past Medical History - General Information source: Patient - Social History Smoking Status: Current Every Day Smoker Chew tobacco use (# tins/day): No Frequency of alcohol use: None Drug Abuse: None Lives with: Family Family History: Reviewed & Not Pertinent - Does not know anything about her father., Malignancy - Mother from colon cancer Patient has suicidal ideation: No Patient has homicidal ideation: No - Past Medical History Cardiac Medical History: Reports: Hx Hypertension Pulmonary Medical History: Reports: None EENT Medical History: Reports: None Neurological Medical History: Reports: Hx Migraine Endocrine Medical History: Reports: None Renal/ Medical History: Reports: None. Denies: Hx Peritoneal Dialysis Malignancy Medical History: Reports: None GI Medical History: Reports: None Musculoskeletal Medical History: Reports Hx Arthritis - RA bilat knees Skin Medical History: Reports None Psychiatric Medical History: Reports: Hx Depression Traumatic Medical History: Reports: None Infectious Medical History: Reports: None Past Surgical History: Reports: Hx Cholecystectomy, Hx Neurologic Surgery - tumor removed, Hx Tubal Ligation. Denies: Hx Hysterectomy - Immunizations Immunizations up to date: Yes Hx Pneumococcal Vaccination: 04/17/11 Review of Systems - Review of Systems Constitutional: See HPI EENT: No symptoms reported Cardiovascular: No symptoms reported Respiratory: No symptoms reported Gastrointestinal: See HPI Genitourinary: See HPI Female Genitourinary: No symptoms reported Musculoskeletal: No symptoms reported Skin: No symptoms reported Hematologic/Lymphatic: No symptoms reported Neurological/Psychological: No symptoms reported Physical Exam - Vital signs Vitals: Temp Pulse Resp BP Pulse Ox 97.7 F 82 18 159/113 H 97 06/07/19 17:06 06/07/19 17:06 06/07/19 17:06 06/07/19 17:06 06/07/19 17:06 - Notes Notes: GENERAL: Well-appearing, well-nourished and in no acute distress. HEAD: Atraumatic, normocephalic. EYES: Pupils equal round and reactive to light, extraocular movements intact, sclera anicteric, conjunctiva are normal. ENT: Nares patent, oropharynx clear without exudates. Moist mucous membranes. NECK: Normal range of motion, supple without lymphadenopathy or JVD. LUNGS: Breath sounds clear to auscultation bilaterally and equal. No wheezes rales or rhonchi. HEART: Regular rate and rhythm without murmurs, rubs or gallops. ABDOMEN: Soft, nontender, normoactive bowel sounds. No guarding, no rebound. No masses appreciated. BACK: No cervical, thoracic, lumbar midline tenderness. No saddle anesthesia, normal distal neurovascular exam. NO CVA tenderness. GENITOURINARY: Deferred. EXTREMITIES: Normal range of motion, no pitting or edema. No clubbing or cyanosis. NEUROLOGICAL: Cranial nerves II through XII grossly intact. Normal speech, normal gait. PSYCH: Normal mood, normal affect. SKIN: Warm, Dry, normal turgor, no rashes or lesions noted. Course - Re-evaluation Re-evalutation: 06/07/19 20:38 Results of the CAT scan are pending. Patient resting comfortably on stretcher no acute distress. Patient nontoxic-appearing and requesting something to eat. I did inform the patient she is n.p.o. until she has the results of the CAT scan at back and I tell her otherwise. 06/07/19 21:17 I did contact [facility] to consult with urology regarding the patient's urinary tract infection and CAT scan read. 06/07/19 21:34 I did speak with Dr. Marie, manager transmission urology at [facility] to discuss patient case. He states that typically with stent placement patients will have white blood cells and ureteral inflammation present. I did make him aware that the patient is also having vaginal issues to include a diagnosis of a yeast infection and bacterial vaginosis. He does recommend obtaining a cath urine, obtaining a culture with cath urine, and treating prophylactically with antibiotics. He does state that the patient needs to follow-up with urology on Sunday as she does need the stent removed. Patient does not have any flank pain. Patient is not tachycardic, hypotensive or febrile at this time. Patient in no acute distress. - Vital Signs Vital signs: Temp Pulse Resp BP Pulse Ox 97.4 F 63 20 153/99 H 100 06/07/19 22:41 06/07/19 22:41 06/07/19 22:41 06/07/19 22:41 06/07/19 22:41 - Laboratory Result Diagrams: 06/07/19 18:57 06/07/19 18:57 Laboratory results interpreted by me: 06/07/19 06/07/19 06/07/19 17:41 18:57 18:57 WBC 10.6 H Potassium 3.3 L Urine Protein 100 H Urine Blood LARGE H Ur Leukocyte Esterase MODERATE H 06/07/19 20:37 Patient does not have a significant leukocytosis. Patient's urinalysis did show moderate leukocytes with greater than 182 white blood cells. Patient's gonorrhea and chlamydia negative. Laboratory 06/07/19 06/07/19 06/07/19 17:41 17:41 18:57 WBC 10.6 H RBC 4.67 Hgb 14.2 Hct 43.5 MCV 93 MCH 30.4 MCHC 32.6 RDW 13.7 Plt Count 228 Lymph % (Auto) 30.7 Gilchrist % (Auto) 6.9 Eos % (Auto) 3.0 Baso % (Auto) 0.6 Absolute Neuts (auto) 6.2 Absolute Lymphs (auto) 3.3 Absolute Monos (auto) 0.7 Absolute Eos (auto) 0.3 Absolute Basos (auto) 0.1 Seg Neutrophils % 58.8 Sodium Potassium Chloride Carbon Dioxide Anion Gap BUN Creatinine Est GFR ( Amer) Est GFR (MDRD) Non-Af Glucose Calcium Total Bilirubin Direct Bilirubin Neonat Total Bilirubin Neonat Direct Bilirubin Neonat Indirect Bili AST ALT Alkaline Phosphatase Total Protein Albumin Serum HCG, Qual Urine Color RED Urine Appearance CLOUDY Urine pH 6.0 Ur Specific [place] 1.015 Urine Protein 100 H Urine Glucose (UA) NEGATIVE Urine Ketones NEGATIVE Urine Blood LARGE H Urine Nitrite NEGATIVE Urine Bilirubin NEGATIVE Urine Urobilinogen NEGATIVE Ur Leukocyte Esterase MODERATE H Urine WBC (Auto) >182 Urine RBC (Auto) >182 Squamous Epi Cells Auto 6 Urine Mucus (Auto) MANY Urine Ascorbic Acid NEGATIVE Chlamydia DNA (PCR) NOT DETECTED N.gonorrhoeae DNA (PCR) NOT DETECTED 06/07/19 06/07/19 18:57 18:57 WBC RBC Hgb Hct MCV MCH MCHC RDW Plt Count Lymph % (Auto) Gilchrist % (Auto) Eos % (Auto) Baso % (Auto) Absolute Neuts (auto) Absolute Lymphs (auto) Absolute Monos (auto) Absolute Eos (auto) Absolute Basos (auto) Seg Neutrophils % Sodium 139.0 Potassium 3.3 L Chloride 106 Carbon Dioxide 25 Anion Gap 8 BUN 7 Creatinine 0.78 Est GFR ( Amer) > 60 Est GFR (MDRD) Non-Af > 60 Glucose 84 Calcium 9.1 Total Bilirubin 0.4 Direct Bilirubin 0.2 Neonat Total Bilirubin Not Reportable Neonat Direct Bilirubin Not Reportable Neonat Indirect Bili Not Reportable AST 15 ALT 12 Alkaline Phosphatase 79 Total Protein 6.6 Albumin 3.7 Serum HCG, Qual NEGATIVE Urine Color Urine Appearance Urine pH Ur Specific Surprise Urine Protein Urine Glucose (UA) Urine Ketones Urine Blood Urine Nitrite Urine Bilirubin Urine Urobilinogen Ur Leukocyte Esterase Urine WBC (Auto) Urine RBC (Auto) Squamous Epi Cells Auto Urine Mucus (Auto) Urine Ascorbic Acid Chlamydia DNA (PCR) N.gonorrhoeae DNA (PCR) - Diagnostic Test Radiology reviewed: Reports reviewed Radiology results interpreted by me: 06/07/19 21:17 Renal Ultrasound 06/07/19 17:29 IMPRESSION: 6 MM CALCULUS IN THE UPPER POLE OF THE LEFT KIDNEY. MILD PELVO CALIECTASIS OF THE LEFT KIDNEY. NO ABNORMAL FINDINGS IN THE RIGHT KIDNEY. Abdomen/Pelvis CT 06/07/19 19:33 IMPRESSION: Double-J nephroureteral stent in place in the left with mild left hydronephrosis and perinephric and periureteric inflammation. Possibility of pyelonephritis or partial obstruction of the stents is not excluded Nonobstructing left renal stones and probable ureteral stone proximally measuring 3 mm Bilateral adrenal masses which appears stable when compared to 2014 and are most consistent with adenomas. Procedures - Pelvic Exam Pelvic exam Time completed: 20:15 Wet prep obtained: Yes Witnessed by: PCT Notes: 06/07/19 20:37 Patient's external genitalia was unremarkable without edema, erythema or discharge. Patient tolerated the insertion of the speculum well without discom fort. Patient did not have any blood within the vaginal vault. Patient does have a moderate amount of thin white discharge. This was cultured. Discharge - Discharge Clinical Impression: Bacterial vaginosis, Vaginal sudhir, Flank pain, Ureteral stone Condition: Stable Disposition: HOME, SELF-CARE Additional Instructions: Today you are seen in the emergency department for flank pain. We did obtain a CAT scan which did show the correct placement of the ureteral stent. I did speak with the on-call urologist at [facility] who recommends prophylactically treating you with oral antibiotics. We have sent off a urine culture and you will be contacted if we need to change her antibiotic. We will place you on Bactrim DS for 10 days. Please return to the emergency department if you develop severe pain, severe vomiting, fever, or any new or worsening symptoms. Please follow-up with urology on Sunday as the on-call urologist did recommend that you see them early next week. We did repeat your pelvic examination and your gonorrhea and Chlamydia tests were negative. It does show that you have bacterial vaginosis and a vaginal yeast infection. You have been given a one-time dose of Diflucan here in the emergency department to treat the yeast infection. You have also been given Flagyl. Flagyl is to treat the bacterial vaginosis. Bacterial vaginosis the condition due to the overgrowth of bacteria in the vagina. You should avoid sexual contact until your symptoms are all better and you are not having foul- smelling odor or discharge from the vagina. Vaginosis, Bacterial Your exam shows you have bacterial vaginosis. This condition is due to an overgrowth of bacteria in the vagina. Symptoms may include vaginal itching or p ain, a smelly discharge, and sometimes burning with urination. Normally this is not transmitted by sexual contact. Vaginosis can be treated with oral or topical antibiotics. Metronidazole (Flagyl) pills are usually effective. Topical vaginal creams include Cleocin and Metro-Gel. You should avoid sexual contact until your symptoms are all better. Call the doctor if you develop pelvic pain, fever, or problems with urination, or if you don't improve as expected. Prescriptions: Metronidazole [Flagyl 500 mg Tablet] 500 mg PO BID #14 tablet Referrals: BRYON STONER NP [Primary Care Provider] - Follow up as needed
[2019-06-07 20:41] LABS: BACTERIA (WET MOUNT) 4+ BACTERIA SEEN; EPITHELIALS (WET MOUNT) 4+ EPITHELIALS SEEN; T.VAGINALIS (WET MOUNT) NO TRICHOMONAS SEEN; WBCS (WET MOUNT) 2+ WBCS SEEN; YEAST (WET MOUNT) YEAST SEEN
--- NOTE | 2019-06-07 21:04 | RADIOLOGY REPORT (SQ) ---
EXAM DESCRIPTION: CT ABDOMEN PELVIS WITHOUT IV CONTRAST COMPLETED DATE/TME: 06/07/2019 19:33 CLINICAL HISTORY: 49 years Female hx. Ureteral stent, left flank pain, uti COMPARISON: 05/06/2019 TECHNIQUE: Contiguous axial images obtained through the abdomen and pelvis without IV contrast. Reformatted images obtained. This exam was performed according to our department optimization program which includes automated exposure control, adjustment of the mA and/or kv according to patient size and/or use of iterative reconstruction technique. FINDINGS: The lung bases are clear. The liver appears unremarkable. The spleen and pancreas appear unremarkable. Low-attenuation adrenal masses bilaterally which appears stable. These were present on the examination from 2014. Unremarkable right kidney. Perinephric stranding on the left with nonobstructing renal calculi. There is a double-J stent in place. There is a focal area that may reflect stone or concretion along the proximal aspect of the stent measuring approximately 3 mm on image 35. Inflammatory changes extend along the ureter. The gallbladder is absent. No aneurysmal dilatation of the aorta. No bowel obstruction. Unremarkable appendix. No free pelvic fluid. IMPRESSION: Double-J nephroureteral stent in place in the left with mild left hydronephrosis and perinephric and periureteric inflammation. Possibility of pyelonephritis or partial obstruction of the stents is not excluded Nonobstructing left renal stones and probable ureteral stone proximally measuring 3 mm Bilateral adrenal masses which appears stable when compared to 2014 and are most consistent with adenomas.
[2019-06-07] MEDS ORDERED: FLUCONAZOLE 100 MG TABLET PO ONE (21:53)
[2019-06-07] MEDS ORDERED: SULFAMETHOXAZOLE/TRIMETHOPRIM 800-160 MG TABLET PO ONE (21:54)
[2019-06-07] MEDS ORDERED: HYDROCODONE/ACETAMINOPHEN 5-325 MG (6 TAB/ER DISP) PO PRN (21:57)
[2019-06-07 22:44] VITALS: BP 153/99
== END 2019-06-07 22:41 | disposition home or self-care (01) ==
LOC: ER 17:02
DX: N76.0 Acute vaginitis (principal); B96.89 Other specified bacterial agents as the cause of diseases classified elsewhere; B37.3 Candidiasis of vulva and vagina; N20.1 Calculus of ureter; R10.9 Unspecified abdominal pain; I10 Essential (primary) hypertension; F17.200 Nicotine dependence, unspecified, uncomplicated; Z88.0 Allergy status to penicillin; Z90.49 Acquired absence of other specified parts of digestive tract
CPT/HCPCS: 99284; 51701; 36415; 87086; 87210; 84703; 85025; 80053; 81001; 87491; 87591; 76770; 74176; J3490 ×2

== ENCOUNTER → 2020-05-14 | Outpatient (CLI) | payer MEDICAID ==
--- NOTE | 2020-05-14 16:40 | WOMENS IMAGING REPORT ---
EXAM DESCRIPTION: BILAT SCREENING MAMMO W/CAD IMAGES COMPLETED DATE/TIME: 05/14/2020 10:41 am REASON FOR STUDY: Z12.31 ENCNTR SCREEN MAMMOGRAM FOR MALIGNANT NEOPLASM OF BREAST Z12.31 ENCNTR SCR EEN MAMMOGRAM FOR MALIGNANT NEOPLASM OF LEYLA COMPARISON: 2014 and 2017. EXAM PARAMETERS: Standard craniocaudal and mediolateral oblique views of each breast recorded using digital acquisition. Read with the assistance of CAD. .[facility] - [employer] Version 9.2 LIMITATIONS: None. FINDINGS: No suspicious masses, suspicious calcifications or architectural distortion. No areas of c oncern. IMPRESSION: NEGATIVE MAMMOGRAM. BIRADS 1 BREAST DENSITY: b. There are scattered areas of fibroglandular density. BIRAD: ASSESSMENT: 1 NEGATIVE RECOMMENDATION: ROUTINE SCREENING COMMENT: The patient has been notified of the results by letter per MQSA requirements. Additional no tification policies are in place for contacting patient with suspicious or incomplete findings. Quality ID #[id number]: The [employer] recommends an annual screening mammogram for women aged 40 years or over. This facility utilizes a reminder system to ensure that all patients receive reminder letters, and/or direct phone calls for appointments. This includes reminders for routine scr eening mammograms, diagnostic mammograms, or other Breast Imaging Interventions when appropriate. Th is patient will be placed in the appropriate reminder system. TECHNICAL DOCUMENTATION: FINDING NUMBER: (1) ASSESSMENT: (1) JOB ID: [id number] 2010 [employer]- All Rights Reserved Reading location - IP/workstation name: [email or web address]
== END ==
LOC: WI 10:20
PROVIDERS: ATTEND Physician Assistant
DX: Z12.31 Encounter for screening mammogram for malignant neoplasm of breast (principal)
CPT/HCPCS: 77067